=== PATIENT | female | born 1930 | race Caucasian/White ===

== ENCOUNTER 2017-05-24 13:56 | Inpatient (IN) | payer MEDICARE, MEDICAID ==
[~2017-05-24] VITALS: Ht 170.2 cm; Wt 118.2 kg
[2017-05-24] MEDS ORDERED: GABA-279 PO (14:13)
--- NOTE | 2017-05-24 16:47 | REP ---
LUMBAR SPINE, FIVE VIEWS: HISTORY: Trauma. The examination is limited secondary to the patients body habitus. There is no definite fracture or subluxation. The intervertebral discs are decreased in height consistent with disc degeneration. Osteophytes are present throughout the lumbar spine. There is scoliosis convex to the right. IMPRESSION: Limited examination demonstrating no definite fracture or subluxation. Signed by Stas Johnson MD 05/24/2017 04:51 P
--- NOTE | 2017-05-24 17:03 | REP ---
RIGHT HIP, PELVIS, THREE VIEWS: HISTORY: Trauma. There is no acute fracture or dislocation. There is narrowing of the joint space. The bony structures are osteopenic. IMPRESSION: There is no acute fracture or dislocation. Signed by Stas Johnson MD 05/24/2017 05:04 P
--- NOTE | 2017-05-24 17:12 | REP ---
RIGHT KNEE, FIVE VIEWS: HISTORY: Trauma. COMPARISON: 07/19/2007. The patient is status-post right total knee replacement. There is no acute fracture or dislocation. The bony structure is osteopenic. IMPRESSION: The patient is status-post right total knee replacement. There is anatomic alignment. Signed by Stas Johnson MD 05/25/2017 08:13 A
[2017-05-24 18:22] LABS: BASO % 0.4 % (0.0-1.0); EOS # 0.1 K/mm3 (0.0-0.50); EOS % 1.3 % (0.0-3.0); LARGE UNSTAINED CELL # 0.1 K/mm3 (0.0-0.4); LYMPH # 1.2 K/mm3 (1.5-4.5); LYMPH % 22.8 % (24.0-44.0); MEAN CORPUSCULAR HEMOGLOBIN 32.3 pg (27.0-33.0); MEAN CORPUSCULAR HGB CONC 33.1 g/dl (32.0-36.5); MEAN CORPUSCULAR VOLUME 97.7 fl (80.0-96.0); MONO # 0.4 K/mm3 (0.0-0.8); MONO % 8.5 % (0.0-5.0); NEUTROPHILS # 3.2 K/mm3 (1.8-7.7); NEUTROPHILS % 64.9 % (36.0-66.0); PLATELET COUNT, AUTOMATED 186 k/mm3 (150-450); RED CELL DISTRIBUTION WIDTH 13.4 % (11.5-14.5); WHITE BLOOD COUNT 4.9 K/mm3 (4.0-10.0)
[2017-05-24 18:55] LABS: ALBUMIN 3.2 GM/DL (3.2-5.2); ALBUMIN/GLOBULIN RATIO 0.76 (1.00-1.93); ALKALINE PHOSPHATASE 64 U/L (45-117); ALT/SGPT 31 U/L (12-78); ANION GAP 4 MEQ/L (8-16); AST/SGOT 72 U/L (15-37); BILIRUBIN,DIRECT 0.1 MG/DL (0.0-0.2); BILIRUBIN,TOTAL 0.5 MG/DL (0.2-1.0); BLOOD UREA NITROGEN 17 MG/DL (7-18); CALCIUM LEVEL 9.8 MG/DL (8.8-10.2); CARBON DIOXIDE LEVEL 32 MEQ/L (21-32); CHLORIDE LEVEL 106 MEQ/L (98-107); CREATININE FOR GFR 0.86 MG/DL (0.55-1.02); GLOMERULAR FILTRATION RATE > 60.0 (>32); GLUCOSE, FASTING 109 MG/DL (83-110); SODIUM LEVEL 142 MEQ/L (136-145); TOTAL PROTEIN 7.4 GM/DL (6.4-8.2)
[2017-05-24] MEDS ORDERED: ACETAMINOPHEN TAB 650MG DOSE (2X325MG) PO ONE (20:45)
[2017-05-24] MEDS ORDERED: ONDANSETRON 4MG/2ML VIAL (J2405) IV PRN (21:45)
[2017-05-24] MEDS ORDERED: ALBU17IN INH (21:46)
--- NOTE | 2017-05-24 22:34 | HPE ---
DATE OF ADMISSION: 05/24/2017 PRIMARY CARE PHYSICIAN: Dr. Ty Warren CHIEF COMPLAINT: Fall. HISTORY OF THE PRESENT ILLNESS: This is an 86-year-old female who lives alone, has been nonambulatory for the past 2 years, baseline transferring from her electronic chair to the bed and to the commode at home, chronic hypoxic respiratory failure, 2 liters of home oxygen as needed, chronic obstructive pulmonary disease (COPD), diabetes borderline, chronic bronchitis, right shoulder osteoarthritis, venous stasis of lower extremities, hysterectomy, bilateral knee replacement, cholecystectomy and tonsillectomy, presents to the emergency room after a fall last evening. The patient had been trying to get out of bed to go to the bathroom, had fallen and hit a stool on the bed, sustaining a right hip bruising as she fell forward without head trauma or loss of consciousness. She was in her usual state of health and denies any shortness of breath, palpitations, lightheadedness, dizziness, chest pain, pressure or tightness, fever, chills, nausea, vomiting, diarrhea, bright red blood per rectum, melena, dysuria, urgency or frequency prior to her fall. The patient has been having difficulty with ambulation for several years and has been having worsening transferring ability from bed to her chair and bed to commode for the past few weeks. The patient landed on her face and the right side and was on her right side for several hours before she pressed her Life Alert for assistance today. She was brought in for further evaluation. X-rays of the hip and knee on the right side are unremarkable for fracture or dislocation. Complete blood count (CBC), metabolic panel are unremarkable. Creatinine was normal. Liver function tests essentially normal. Urinalysis (UA) is negative. Chest x-ray has no acute infiltrate or consolidation. She is afebrile with normal vital signs. Hospitalist service was called for admission for gait instability and fall. PAST MEDICAL HISTORY: Diabetes. COPD, chronic home oxygen as needed, two liters nasal cannula. Left shoulder osteoarthritis. Venous insufficiency. PAST SURGICAL HISTORY: Cholecystectomy. Hysterectomy. Tonsillectomy. Bilateral knee replacement. ALLERGIES: PENICILLIN, PENICILLIN CROSS REACTORS. HOME MEDICATIONS: - Neurontin 100 mg twice a day - Ventolin two puffs inhaled every 4 hours as needed - Patient does not recall her medication list, usually goes to [facility] on [facility]. FAMILY HISTORY: Mother with pancreatic cancer, father with coronary artery disease. SOCIAL HISTORY: The patient lives alone. No cigarette use, alcohol or drug use. Retired caregiver and restaurant employee. The patient's healthcare proxy is Viktoriya (daughter), phone number [phone]. REVIEW OF SYSTEMS: Per history of the present illness. Twelve point system otherwise negative. PHYSICAL EXAMINATION: Temperature is 98.6, pulse 67, sinus rhythm, respiratory rate 18, blood pressure 116/74, 88% on room air, 98% on two liters nasal cannula. Generally, patient is awake, alert, oriented to person only. She is lethargic, answers questions but arousable. Appears to be very tired and exhausted, able so speak in full sentences. No respiratory distress. No cyanosis. No jugular venous distention. Pupils are round and reactive to light and accommodation. Lungs are clear to auscultation. No wheezing, rales, or rhonchi. Heart: S1, S2, sinus rhythm. Abdomen is obese, soft, nontender, nondistended. Positive bowel sounds. Extremities: 1+ pitting edema. Chronic venous stasis changes. The patient has multiple ecchymotic areas on the right buttocks with bilateral knee replacements , well healed scars. EKG: Sinus rhythm, Nonspecific ST-T changes. No acute ischemia. LABORATORY DATA: White count 4.9, hemoglobin 13, hematocrit 40, MCV 97.7, MCH 32, platelet count 186. [id number], potassium 5, chloride 106, bicarbonate 32, BUN 17, creatinine 0.86, glucose of 109, calcium 9.8, total bilirubin 0.5, direct bilirubin 0.1, AST 72, ALT 31, alkaline phosphatase 64, total protein 7.4, albumin of 3.2. MICROBIOLOGY Urinalysis - negative leukocyte esterase, nitrite, 1 WBC, negative bacteria. IMAGING STUDIES: Chest x-ray: No acute cardiopulmonary disease. Hip x-ray: No acute fracture or dislocation. Right knee x-ray: No acute fracture or dislocation. Status post right total knee replacement with anatomic alignment. Lumbar spine x-ray: Limited exam, demonstrating no definite fracture or subluxation. ASSESSMENT AND PLAN: This is an 86-year-old female with a history of borderline diabetes, chronic obstructive pulmonary disease, chronic home oxygen, two liters nasal cannula as needed for shortness of breath, chronic bronchitis, left shoulder osteoarthritis, venous stasis, bilateral knee replacements, hysterectomy, tonsillectomy, who lives alone, has been limited with her ambulation for the past 2 years, usually transfers from bed to chair and to the commode, has been having worsening gait disturbance, unable to transfer for the past few days, had fallen at home and was on the floor for several hours prior to calling Life Alert. X-rays of the hip and right knee are unremarkable. She sustained some ecchymotic areas. Denies any prodromal symptoms. Currently admitted for evaluation and treatment for fall at home from a standing position. The patient will be admitted as an inpatient for two midnights, assigned to Dr. Cadence Chen at 7:00 a.m. on 05/25/2017, [facility] for the following issues: 1. Fall from a standing position at home. The patient has been having increase in gait disturbance for the past few months. She has been in a wheelchair with bed to transfer abilities for the past 2 years, according to daughter. She lives at home. Denies any prodromal symptoms prior to the fall. X-rays are negative. Physical therapy (PT) evaluation. Deep vein thrombosis (DVT) prophylaxis and Tylenol for pain control. 2. History of chronic obstructive pulmonary disease (COPD), on chronic home oxygen. Resume nebulizer treatment as needed. Supplemental oxygen. No acute wheezing on examination. 3. Borderline diabetes. The patient's fasting glucose is 109. Check an A1c in the morning. 4. Chronic venous insufficiency, venous stasis dermatitis. Monitor for worsening symptoms. 5. DVT prophylaxis with Lovenox, renally dosed. [facility]/24/2017 at 7:00 a.m. [facility]
[2017-05-24] MEDS ORDERED: CLOPIDOGREL 75 MG TAB PO STA (23:22)
[2017-05-24] MEDS ORDERED: SIMVASTATIN 40 MG TAB PO ONE (23:30)
[2017-05-24] MEDS ORDERED: ENOXAPARIN 120 MG/0.8 ML SYR (J1650) SC SCH (23:30)
[2017-05-24] MEDS ORDERED: ASPIRIN 81 MG CHEW TABLET PO ONE (23:30)
[2017-05-24] MEDS ORDERED: NS 1,000 ML IV SCH (23:30)
[2017-05-25] VITALS (7 sets, daily range): BP systolic 116–143; BP diastolic 56–73
[2017-05-25] MEDS ORDERED: ENOXAPARIN 150 MG/ML SYR (J1650) SC SCH ×2 (02:00)
[2017-05-25 06:13] LABS: BASO % 0.4 % (0.0-1.0); EOS # 0.2 K/mm3 (0.0-0.50); EOS % 3.1 % (0.0-3.0); LARGE UNSTAINED CELL # 0.1 K/mm3 (0.0-0.4); LARGE UNSTAINED CELL % 1.7 % (0.0-4.0); LYMPH # 1.1 K/mm3 (1.5-4.5); LYMPH % 19.3 % (24.0-44.0); MEAN CORPUSCULAR HEMOGLOBIN 32.2 pg (27.0-33.0); MEAN CORPUSCULAR HGB CONC 32.8 g/dl (32.0-36.5); MEAN CORPUSCULAR VOLUME 98.4 fl (80.0-96.0); MONO # 0.4 K/mm3 (0.0-0.8); MONO % 7.5 % (0.0-5.0); NEUTROPHILS # 3.5 K/mm3 (1.8-7.7); PLATELET COUNT, AUTOMATED 188 k/mm3 (150-450); RED CELL DISTRIBUTION WIDTH 13.5 % (11.5-14.5); WHITE BLOOD COUNT 5.2 K/mm3 (4.0-10.0)
[2017-05-25 06:29] LABS: ANION GAP 5 MEQ/L (8-16); BLOOD UREA NITROGEN 18 MG/DL (7-18); CALCIUM LEVEL 9.1 MG/DL (8.8-10.2); CARBON DIOXIDE LEVEL 32 MEQ/L (21-32); CHLORIDE LEVEL 109 MEQ/L (98-107); CREATININE FOR GFR 0.74 MG/DL (0.55-1.02); GLOMERULAR FILTRATION RATE > 60.0 (>32); GLUCOSE, FASTING 125 MG/DL (83-110); POTASSIUM SERUM 4.4 MEQ/L (3.5-5.1); SODIUM LEVEL 146 MEQ/L (136-145)
--- NOTE | 2017-05-25 07:44 | ECHO ---
DATE OF PROCEDURE: 05/25/2017 REFERRING PHYSICIAN: Dr. Armstrong. Study performed in sulphate tester hours on 05/25/2017. INDICATION: Fall, elevated troponin. HEIGHT: 67 inches. WEIGHT: 215 pounds. DIMENSION: IVS: 0.9 LV: 4.0 LVPW: 0.9 LA: 4.5 Aorta: 3.1 FINDINGS: The patient is in sinus rhythm. Study is of rather limited technical quality. Left ventricle is of normal size. There is an extensive wall motion abnormality where mid and distal septum, apex, distal anterior wall, distal inferior wall, distal lateral wall are all essentially akinetic. The basal segments of the left ventricle though have hyperdynamic contractility. Overall ejection fraction I estimate around 30-35%. Right ventricle appears grossly normal. Left atrium is at least moderately enlarged. Right atrium was poorly seen but grossly appears normal. Aortic mitral tricuspid valves appear grossly normal. Pulmonic valve was not well seen. No pericardial effusion is noted. Inferior vena cava was not visualized. Aortic root is normal. Aortic arch and abdominal aorta were not seen. Doppler interrogation reveals no aortic valve disease. There is also no mitral stenosis or insufficiency. Trace tricuspid insufficiency seen. Calculated pulmonary artery pressure is within normal limits. Evaluation of diastolic function reveals delayed repolarization pattern on mitral inflow and very low tissue Doppler velocities of mitral annulus (septal and lateral E prime velocities are 6.24 and 4.5 cm/sec respectively). CONCLUSIONS: 1. Study is of fair technical quality. 2. Normal LV size with segmental wall motion abnormalities as noted above and overall estimated LVEF 30-35%. 3. No hemodynamically significant valvular disease. 4. Unable to estimate central venous pressure but probably normal or mildly elevated pulmonary artery pressure. 5. Grade 1 diastolic dysfunction. COMMENT: SBE prophylaxis is not recommended. Study favors so-called stress-induced cardiomyopathy versus ischemic event.
--- NOTE | 2017-05-25 07:49 | REP ---
Portable chest, 09:12 p.m., single AP view, the patient semi upright: Comparisons are 09/29/2012, 06/11/2011 and 07/05/2007. There is a chronic large fixed hiatal hernia. The study is under penetrated. There are no focal infiltrates. Cardiac size is normal for portable positioning. Impression: No acute cardiopulmonary findings. Chronic large fixed hiatal hernia. Bilateral shoulder osteoarthritis. Signed by Craig Bradford MD 05/25/2017 07:40 A
--- NOTE | 2017-05-25 08:22 | IPNPDOC ---
Subjective Date Seen The patient was seen on 05/25/17. Subjective Chief Complaint/HPI The patient is a 86-year-old female admitted with a reason for visit of FALL. Events since last encounter Pt states she is feeling better. She denies CP, Palp, SOB. Constitutional: Denies: Chills, Fever Pulmonary: Denies: Dyspnea Cardiovascular: Denies: Chest Pain, Palpitations Gastrointestinal: Denies: Abdominal Pain Objective Physical Examination General Exam: Positive: Alert, No Acute Distress Neck Exam: Positive: Supple, Negative: JVD Chest Exam: Positive: Clear to auscultation Heart Exam: Positive: Rate Normal, Regular Rhythm Abdomen Exam: Positive: Normal bowel sounds, Soft, Negative: Tenderness Extremity Exam: Positive: Edema (trace-1+ B/L LE edema) Assessment /Plan Problems (1) NSTEMI (non-ST elevated myocardial infarction) Problem Text: 05/25 - Cardiology consulted. I discussed with Dr Fall. Pt started on Lovenox 130 mg BID and Aspirin. On Zocor. Dr Fall questions Takotsubo. He advises decreasing the Lovenox to 120 mg BID, and advises staying on the Lovenox for 48-72 hours. He advises adding Plavix 75 mg daily and metoprolol [address] Fall discussed cath with the pt who stated she was not interested. He did bring up DNR to Pt and daughter. He would like the medicine team to continue the DNR conversation with the pt and family. ECHO: 1. Study is of fair technical quality. 2. Normal LV size with segmental wall motion abnormalities as noted above and overall estimated LVEF 30-35%. 3. No hemodynamically significant valvular disease. 4. Unable to estimate central venous pressure but probably normal or mildly elevated pulmonary artery pressure. 5. Grade 1 diastolic dysfunction. COMMENT: SBE prophylaxis is not recommended. Study favors so-called stress-induced cardiomyopathy versus ischemic event. (2) Elevated troponin Status: Acute Problem Specific Plan: Consult Specialist, Monitor Clinically, Repeat Labs Problem Text: See above. (3) Fall Status: Acute Problem Specific Plan: Monitor Clinically (4) Contusion, hip Status: Acute Problem Specific Plan: Monitor Clinically (5) Knee contusion Status: Acute Problem Specific Plan: Monitor Clinically (6) Gait disturbance Status: Acute Problem Specific Plan: Monitor Clinically (7) Hyperlipidemia Status: Chronic Problem Text: On Zocor. (8) Asthma Status: Chronic Problem Specific Plan: Monitor Clinically Problem Text: PRN Nebs. (9) Morbid obesity with BMI of 40.0-44.9, adult Plan/VTE VTE Prophylaxis Ordered?: Yes VS, I&O, 24H, Fishbone Vital Signs/I&O Vital Signs Date Time Temp Pulse Resp B/P (MAP) Pulse Ox O2 Delivery O2 Flow Rate FiO2 05/25/17 03:53 98.8 71 20 140/63 (88) 94 Room Air 05/25/17 02:25 2.0 I&O- Last 24 Hours up to 6 AM 05/25/17 06:00 Intake Total 450 ml Output Total 280 ml Balance 170 ml Laboratory Data 24H LABS Laboratory Tests 2 05/24/17 17:58: White Blood Count 4.9, Red Blood Count 4.11, Hemoglobin 13.3, Hematocrit 40.2, Mean Corpuscular Volume 97.7H, Mean Corpuscular Hemoglobin 32.3, Mean Corpuscular Hemoglobin Concent 33.1, Red Cell Distribution Width 13.4, Platelet Count 186, Neutrophils (%) (Auto) 64.9, Lymphocytes (%) (Auto) 22.8L, Monocytes (%) (Auto) 8.5H, Eosinophils (%) (Auto) 1.3, Basophils (%) (Auto) 0.4, Neutrophils # (Auto) 3.2, Lymphocytes # (Auto) 1.2L, Monocytes # (Auto) 0.4, Eosinophils # (Auto) 0.1, Basophils # (Auto) 0.0, Large Unclassified Cells % 2.0 , Large Unclassified Cells # 0.1, Anion Gap 4L, Glomerular Filtration Rate > 60.0, Calcium Level 9.8, Aspartate Amino Transf (AST/SGOT) 72H, Alanine Aminotransferase (ALT/SGPT) 31, Alkaline Phosphatase 64, Total Bilirubin 0.5, Direct Bilirubin 0.1, Total Creatine Kinase 1913H, Creatine Kinase MB 33.9H, Creatine Kinase MB Relative Index 1.77, Troponin I 7.22*H, Total Protein 7.4, Albumin 3.2, Albumin/Globulin Ratio 0.76L, Thyroid Stimulating Hormone (TSH) 1.880 05/24/17 19:51: Urine Appearance CLEAR, Urine Color YELLOW, Urine pH 5.0, Urine Specific [place] 1.020, Urine Protein NEGATIVE, Urine Glucose (UA) NEGATIVE, Urine Ketones NEGATIVE, Urine Urobilinogen 0.2, Urine Bilirubin NEGATIVE, Urine Leukocyte Esterase NEGATIVE, Urine Blood NEGATIVE, Urine Nitrite NEGATIVE, Urine WBC (Auto) 1, Urine RBC (Auto) 2, Urine Hyaline Casts (Auto) 0, Urine Bacteria (Auto) NEGATIVE, Urine Squamous Epithelial Cells 1, Urine Mucus (Auto) SMALL, Urine Sperm (Auto) 05/24/17 23:28: Total Creatine Kinase 2219H, Creatine Kinase MB 32.9H, Creatine Kinase MB Relative Index 1.48, Troponin I 6.41*H 05/25/17 05:26: White Blood Count 5.2, Red Blood Count 3.76L, Hemoglobin 12.1, Hematocrit 36.9, Mean Corpuscular Volume 98.4H, Mean Corpuscular Hemoglobin 32.2, Mean Corpuscular Hemoglobin Concent 32.8, Red Cell Distribution Width 13.5, Platelet Count 188, Neutrophils (%) (Auto) 68.0H, Lymphocytes (%) (Auto) 19.3L, Monocytes (%) (Auto) 7.5H, Eosinophils (%) (Auto) 3.1H, Basophils (%) (Auto) 0.4 , Neutrophils # (Auto) 3.5, Lymphocytes # (Auto) 1.1L, Monocytes # (Auto) 0.4, Eosinophils # (Auto) 0.2, Basophils # (Auto) 0.0, Large Unclassified Cells % 1.7 , Large Unclassified Cells # 0.1, Anion Gap 5L, Glomerular Filtration Rate > 60.0, Calcium Level 9.1, Total Creatine Kinase 1944H, Creatine Kinase MB 26.2H, Creatine Kinase MB Relative Index 1.34, Troponin I 6.13*H, Estimated Mean Plasma Glucose 123H, Hemoglobin A1c 5.9, Blood Urea Nitrogen 18, Creatinine 0.74 , Sodium Level 146H, Potassium Level 4.4, Chloride Level 109H, Carbon Dioxide Level 32 CBC/BMP Laboratory Tests 05/24/17 17:58 Red Blood Count 4.11, Mean Corpuscular Volume 97.7 H, Mean Corpuscular Hemoglobin 32.3, Mean Corpuscular Hemoglobin Concent 33.1, Red Cell Distribution Width 13.4, Neutrophils (%) (Auto) 64.9, Lymphocytes (%) (Auto) 22.8 L, Monocytes (%) (Auto) 8.5 H, Eosinophils (%) (Auto) 1.3, Basophils (%) ( Auto) 0.4, Neutrophils # (Auto) 3.2, Lymphocytes # (Auto) 1.2 L, Monocytes # ( Auto) 0.4, Eosinophils # (Auto) 0.1, Basophils # (Auto) 0.0 05/25/17 05:26 Red Blood Count 3.76 L, Mean Corpuscular Volume 98.4 H, Mean Corpuscular Hemoglobin 32.2, Mean Corpuscular Hemoglobin Concent 32.8, Red Cell Distribution Width 13.5, Neutrophils (%) (Auto) 68.0 H, Lymphocytes (%) (Auto) 19.3 L, Monocytes (%) (Auto) 7.5 H, Eosinophils (%) (Auto) 3.1 H, Basophils (%) (Auto) 0.4, Neutrophils # (Auto) 3.5, Lymphocytes # (Auto) 1.1 L, Monocytes # ( Auto) 0.4, Eosinophils # (Auto) 0.2, Basophils # (Auto) 0.0, Calcium Level 9.1, Total Creatine Kinase 1944 H Microbiology Microbiology 05/24/17 Urine Culture, Received Pending Sian Farley May 25, 2017 08:22
[2017-05-25] MEDS ORDERED: CLOPIDOGREL 75 MG TAB PO SCH (09:00)
[2017-05-25] MEDS ORDERED: ENOXAPARIN 30 MG/0.3 ML SYR (J1650) SC SCH (09:00)
[2017-05-25] MEDS: ASPIRIN 81 MG CHEW TABLET PO SCH (09:55)
[2017-05-25] MEDS: CLOPIDOGREL 75 MG TAB PO SCH (09:55)
[2017-05-25] MEDS: METOPROLOL SUCC *XL* 25MG TAB (TopROL *XL*) PO SCH ×2 (09:56→22:52)
[2017-05-25] MEDS: ACETAMINOPHEN TAB 650MG DOSE (2X325MG) PO PRN ×3 (10:01→22:52)
[2017-05-25] MEDS: ENOXAPARIN 120 MG/0.8 ML SYR (J1650) SC SCH (13:45)
--- NOTE | 2017-05-25 19:39 | REP ---
HISTORY: Pain and swelling. Multiple ultrasonographic images of the deep venous structures of the right thigh were obtained along with Doppler interrogative techniques, color flow imaging and augmentation with compression. The technologist has made notation on the worksheet that the examination was very limited due to extremity edema and the patient's inability to tolerate compressive techniques which limits the exam. No definite abnormal echogenic material was visualized in any of the deep venous structures, however, the exam is so limited it cannot be ruled out. IMPRESSION: No visualized DVT, however, exam limitations cause the inability to rule out a DVT. Signed by Derick Smith DO 05/25/2017 07:46 P
--- NOTE | 2017-05-25 20:16 | ECGEPIP ---
Stationary ECG Study [facility] - ED Test Date: 2017-05-24 Pat Name: CATHLEEN BATRES Department: Room: - Gender: F Chick Grader: KENDALL : 1930 Requested By: Kavya Du Order Number: [id number] Reading MD: Amina Schmidt Measurements Intervals [place] Rate: 62 P: 61 MA: 195 QRS: -1 QRSD: 94 T: 30 QT: 422 QTc: 431 Interpretive Statements SINUS RHYTHM WITH OCCASIONAL SUPRAVENTRICULAR PREMATURE COMPLEXES SEPTAL MYOCARDIAL INFARCTION, OF INDETERMINATE AGE POSSIBLE LATERAL MYOCARDIAL INFARCTION OF INDETERMINATE AGE NONSPECIFIC ST T WAVE CHANGES CW 09/29/12 - RATE DECREASED NEW SEPTAL INFARCT AGE INTERMINATE CLINICAL CORRELATION ADVISED Electronically Signed On 05-25-2017 20:16:01 EDT by Amina Schmidt
--- NOTE | 2017-05-25 22:51 | ECGEPIP ---
Stationary ECG Study [facility] Test Date: 2017-05-24 Pat Name: CATHLEEN BATRES Department: Room: [place] [address] Gender: F Template Cutter: rudy : 1930 Requested By: HAJA Patterson Order Number: [id number] Reading MD: Marco Montanez Measurements Intervals [place] Rate: 65 P: 54 ME: 195 QRS: 5 QRSD: 96 T: 30 QT: 336 QTc: 351 Interpretive Statements SINUS RHYTHM LOW QRS VOLTAGE IN PRECORDIAL LEADS NONSPECIFIC ST ELEVATION POSSIBLE PRIOR SEPTAL INFARCT COMPARED TO THE LAST 2 TRACINGS, NO REMARKABLE CHANGES Electronically Signed On 05-25-2017 22:50:58 EDT by Marco Montanez
[2017-05-25] MEDS: SIMVASTATIN 40 MG TAB PO SCH (22:52)
[2017-05-26] VITALS: BP 126/68
--- NOTE | 2017-05-26 01:41 | CR ---
DATE OF CONSULTATION: 05/25/2017 REFERRING PHYSICIAN: Dr. Armstrong and ALBERT Geronimo. INDICATION: Elevated troponin. BRIEF HISTORY: I was called last night and then again this morning by the attending physicians because of the patient's abnormal cardiac markers. She is an 86-year-old female who has no prior history of coronary artery disease or congestive heart failure. She presented to emergency room yesterday afternoon after she had a fall previous night. She unfortunately is a rather difficult historian and does not recall circumstances of her fall. At her baseline it appears that she is minimally mobile and is essentially using a wheelchair and a gets transferred with the help of a walker, but according to both the patient and her daughter, she has not been able to make more than few steps on her own. It appears that she was in a bed and slid out of the bed on the floor and hit her chest. The patient herself believes that she did not have any loss of consciousness. She does not recall whether she had any discomfort in her chest at this point, but as the day progressed, she was less and less mobile and there were some concern about her mental status, so she was brought to emergency room by family for evaluation. Somewhat surprisingly, she was found to have elevated cardiac enzymes with troponin over 7. The ECG did not reveal any acute abnormalities and she did not have any chest discomfort at that time. She had an echocardiogram last night that was interpreted by myself that revealed fairly extensive wall motion abnormalities involving mid and distal segment of the left ventricle with hyperdynamic contractility of basal segments of left ventricle and overall severe left ventricular systolic dysfunction. 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 When I talked to the patient this morning, she denied any chest discomfort. Her dyspnea has been stable and chronic for years. I talked to her about her condition and about some uncertainty about the diagnosis, even though in my opinion ischemic etiology is still rather strongly possible. She expressed the opinion that she would not want to pursue any heroic measures. Under no circumstance would she be willing to undergo open heart surgery and she does not want to be transferred for coronary angiogram either. PAST MEDICAL HISTORY: 1. Chronic obstructive pulmonary disease (COPD), oxygen dependent. 2. Chronic debility. She has been essentially bedridden for many months. 3. Type 2 diabetes. 4. Venous stasis of lower extremities. 5. Degenerative joint disease. 6. Morbid obesity. SURGICAL HISTORY: Positive for: 1. Cholecystectomy. 2. Hysterectomy. 3. Tonsillectomy. 4. Bilateral knee replacement. HOME MEDICATIONS: - Neurontin 100 twice a day - Ventolin puffs - gabapentin 100 twice a day - the remaining medications are not available SOCIAL HISTORY: The patient lives alone. There is no history of cigarette or drug use. She retired from caregiving jobs and restaurant employee. Her daughter, Viktoriya is her healthcare proxy and is very involved in her care. FAMILY HISTORY: Mother had pancreatic cancer and father coronary artery disease. REVIEW OF SYSTEMS: She does not recall whether she had any chest discomfort, but she believes that she could have had some degree of chest discomfort the day prior to her fall. There is no history of stroke. No recent fever, chills, nausea, vomiting, diarrhea. No abdominal pain. No genitourinary symptoms. She has chronic peripheral edema and rather extensive tenderness in both lower extremities. She has been bedridden for many months with minimal ambulation. She cannot explain as to why she cannot walk. PHYSICAL EXAMINATION: Mrs. Bailey is an elderly, morbidly obese female. She does not appear to be in any distress, looks rather comfortable. She appropriately answers most questions even though she has a poor recall of the events. Blood pressure 140/63, heart rate 71 beats per minute. She is afebrile. Saturation 94-95% on room air. Documented weight is 129 kg. Her jugular venous pulse (JVP) is not elevated, but it is difficult to estimate due to her body habitus. Lungs reveal fair air movement. I do not appreciate any wheezing, crackles or rhonchi. Heart exam reveals very muffled heart sound on account of her obesity, but I do not appreciate any gallop or rub. There is a murmur at the aortic valve area and I do not appreciate any apical murmur as such. Abdomen is protuberant, but soft. No obvious guarding. Bowel sounds are present. Extremities have 1+ edema. There is stasis dermatitis bilaterally. Peripheral pulses are palpable. Neurologically, she is alert and oriented times three. There is generalized weakness. I do not appreciate any focal signs. LABORATORY DATA: CBC is normal. Basic metabolic panel as of this morning reveals potassium 4.4, creatinine 0.7, glucose 125, hemoglobin A1c 5.9%. She has already numerous cardiac enzymes. The initial one is the peak at 7.22 with total CK 1900, CK-MB 34 and relative index 1.8, albumin is 3.2, and TSH 1.9. An echocardiogram performed at the emergency room last night as per my above report overall most consistent with Takotsubo cardiomyopathy. There was no valvular disease. An electrocardiogram reveals presence of sinus rhythm with possible septal infarct of undetermined age and also maybe minimal ST-segment elevations in lateral leads. ASSESSMENT AND PLAN: Mrs. Crowell is an 86-year-old female who presents after fall (it does not appear that she had syncope). She does have no acute ST-T abnormalities short of fairly minimal lateral abnormalities to demonstrate acute myocardial infarction (MA) and she does not have any chest discomfort (even though she recalls she may have had pain the day prior to admission). In my opinion, the more likely diagnosis is myocardial infarction, but Takotsubo cardiomyopathy is close second. It is her desire to continue medical management and not to consider coronary intervention. Considering her overall debilitated condition, I believe this is appropriate. I would recommend anticoagulation with Lovenox for at least 48-72 hours and I would continue aspirin and Plavix. She also received small dose beta tony and statin. She is otherwise hemodynamically compensated. If there are no significant arrhythmias, I believe that she can be discharged home after 3-4 days in the hospital provided there are no obvious complications. I also talked to the patient and her daughter, who is simultaneously her healthcare proxy, about her code status. Considering her wishes not to pursue aggressive medical management, I believe it would be appropriate that she is not intubated or resuscitated in the event of cardiac arrest. I discussed my assessment and plan with ALBERT Hu. KEVIN
[2017-05-26] MEDS: ENOXAPARIN 120 MG/0.8 ML SYR (J1650) SC SCH ×2 (02:12→14:12)
[2017-05-26] MEDS ORDERED: NITROGLYCERIN 0.4 MG SUBL TABLET SL PRN (02:45)
[2017-05-26 04:00] VITALS: BP 148/79
[2017-05-26 06:56] LABS: BASO % 0.2 % (0.0-1.0); EOS # 0.2 K/mm3 (0.0-0.50); EOS % 4.7 % (0.0-3.0); LARGE UNSTAINED CELL # 0.1 K/mm3 (0.0-0.4); LARGE UNSTAINED CELL % 2.3 % (0.0-4.0); LYMPH # 1.4 K/mm3 (1.5-4.5); MEAN CORPUSCULAR HEMOGLOBIN 31.4 pg (27.0-33.0); MEAN CORPUSCULAR HGB CONC 31.4 g/dl (32.0-36.5); MONO # 0.3 K/mm3 (0.0-0.8); MONO % 7.3 % (0.0-5.0); NEUTROPHILS # 2.6 K/mm3 (1.8-7.7); NEUTROPHILS % 56.5 % (36.0-66.0); PLATELET COUNT, AUTOMATED 173 k/mm3 (150-450); RED CELL DISTRIBUTION WIDTH 13.4 % (11.5-14.5); WHITE BLOOD COUNT 4.5 K/mm3 (4.0-10.0)
[2017-05-26 07:18] LABS: ALBUMIN 2.8 GM/DL (3.2-5.2); ALBUMIN/GLOBULIN RATIO 0.67 (1.00-1.93); ALKALINE PHOSPHATASE 56 U/L (45-117); ALT/SGPT 36 U/L (12-78); ANION GAP 5 MEQ/L (8-16); AST/SGOT 70 U/L (15-37); BILIRUBIN,TOTAL 0.4 MG/DL (0.2-1.0); BLOOD UREA NITROGEN 18 MG/DL (7-18); CALCIUM LEVEL 8.7 MG/DL (8.8-10.2); CARBON DIOXIDE LEVEL 31 MEQ/L (21-32); CHLORIDE LEVEL 109 MEQ/L (98-107); CREATININE FOR GFR 0.67 MG/DL (0.55-1.02); GLOMERULAR FILTRATION RATE > 60.0 (>32); GLUCOSE, FASTING 104 MG/DL (83-110); POTASSIUM SERUM 4.4 MEQ/L (3.5-5.1); SODIUM LEVEL 145 MEQ/L (136-145)
[2017-05-26 08:00] VITALS: BP 131/60
--- NOTE | 2017-05-26 08:38 | IPNPDOC ---
Subjective Date Seen The patient was seen on 05/26/17. Subjective Chief Complaint/HPI The patient is a 86-year-old female admitted with a reason for visit of FALL. Events since last encounter Pt states she is about the same. Denies any CP, SOB, Abd pain. Constitutional: Denies: Chills, Fever Pulmonary: Denies: Dyspnea Cardiovascular: Denies: Chest Pain, Palpitations Gastrointestinal: Denies: Abdominal Pain Objective Physical Examination General Exam: Positive: Alert, No Acute Distress Neck Exam: Positive: Supple, Negative: JVD Chest Exam: Positive: Clear to auscultation Heart Exam: Positive: Rate Normal, Regular Rhythm Abdomen Exam: Positive: Normal bowel sounds, Soft, Negative: Tenderness Extremity Exam: Positive: Edema (trace-1+ B/L LE edema) Assessment /Plan Problems (1) NSTEMI (non-ST elevated myocardial infarction) Problem Text: 05/26 - Seen by cardiology. Trops trending down. Dr Fall questions Takotsubo. Dr Fall discussed cath with the pt who stated she was not interested. Pt is on Lovenox [address] Fall advises staying on the Lovenox for 48-72 hours and advises her to go home on aspirin and plavix when stable for D/C. Pt is on Zocor. She is on Metoprolol 25 mg PO BID. 05/25 - Cardiology consulted. I discussed with Dr Fall. Pt started on Lovenox 130 mg BID and Aspirin. On Zocor. Dr Fall questions Takotsubo. He advises decreasing the Lovenox to 120 mg BID, and advises staying on the Lovenox for 48- 72 hours. He advises adding Plavix 75 mg daily and metoprolol [address] Fall discussed cath with the pt who stated she was not interested. He did bring up DNR to Pt and daughter. He would like the medicine team to continue the DNR conversation with the pt and family. ECHO: 1. Study is of fair technical quality. 2. Normal LV size with segmental wall motion abnormalities as noted above and overall estimated LVEF 30-35%. 3. No hemodynamically significant valvular disease. 4. Unable to estimate central venous pressure but probably normal or mildly elevated pulmonary artery pressure. 5. Grade 1 diastolic dysfunction. COMMENT: SBE prophylaxis is not recommended. Study favors so-called stress-induced cardiomyopathy versus ischemic event. (2) Elevated troponin Status: Acute Problem Specific Plan: Consult Specialist, Monitor Clinically, Repeat Labs Problem Text: See above. (3) Fall Status: Acute Problem Specific Plan: Monitor Clinically (4) Contusion, hip Status: Acute Problem Specific Plan: Monitor Clinically (5) Knee contusion Status: Acute Problem Specific Plan: Monitor Clinically (6) Gait disturbance Status: Acute Problem Specific Plan: Monitor Clinically (7) Hyperlipidemia Status: Chronic Problem Text: On Zocor. (8) Asthma Status: Chronic Problem Specific Plan: Monitor Clinically Problem Text: PRN Nebs. (9) Morbid obesity with BMI of 40.0-44.9, adult Plan/VTE VTE Prophylaxis Ordered?: Yes VS, I&O, 24H, Fishbone Vital Signs/I&O Vital Signs Date Time Temp Pulse Resp B/P (MAP) Pulse Ox O2 Delivery O2 Flow Rate FiO2 05/26/17 04:00 97.0 68 20 148/79 (102) 93 Nasal Cannula 2.0 I&O- Last 24 Hours up to 6 AM 05/26/17 06:00 Intake Total 1570 ml Output Total 500 ml Balance 1070 ml Laboratory Data 24H LABS Laboratory Tests 2 05/25/17 12:09: Total Creatine Kinase 1564H, Creatine Kinase MB 20.4H, Creatine Kinase MB Relative Index 1.30, Troponin I 5.69*H 05/25/17 18:01: Total Creatine Kinase 1309H, Creatine Kinase MB 15.8H, Creatine Kinase MB Relative Index 1.20, Troponin I 4.14#*H 05/26/17 01:40: Total Creatine Kinase 1122H, Creatine Kinase MB 12.8H, Creatine Kinase MB Relative Index 1.14, Troponin I 4.22*H 05/26/17 06:25: Total Creatine Kinase 979H, Creatine Kinase MB 10.9H, Creatine Kinase MB Relative Index 1.11, Troponin I 3.94*H, White Blood Count 4.5, Red Blood Count 3.89L, Hemoglobin 12.2, Hematocrit 38.8, Mean Corpuscular Volume 100.0H, Mean Corpuscular Hemoglobin 31.4, Mean Corpuscular Hemoglobin Concent 31.4L, Red Cell Distribution Width 13.4, Platelet Count 173, Neutrophils (%) (Auto) 56.5, Lymphocytes (%) (Auto) 29.0, Monocytes (%) (Auto) 7.3H, Eosinophils (%) (Auto) 4.7H, Basophils (%) (Auto) 0.2, Neutrophils # (Auto) 2.6, Lymphocytes # (Auto) 1.4L, Monocytes # (Auto) 0.3, Eosinophils # (Auto) 0.2, Basophils # (Auto) 0.0, Large Unclassified Cells % 2.3, Large Unclassified Cells # 0.1, Anion Gap 5L, Glomerular Filtration Rate > 60.0, Blood Urea Nitrogen 18, Creatinine 0.67, Sodium Level 145, Potassium Level 4.4, Chloride Level 109H, Carbon Dioxide Level 31, Calcium Level 8.7L, Aspartate Amino Transf (AST/SGOT) 70H, Alanine Aminotransferase (ALT/SGPT) 36, Alkaline Phosphatase 56, Total Bilirubin 0.4, Total Protein 7.0, Albumin 2.8L, Albumin/Globulin Ratio 0.67L CBC/BMP Laboratory Tests 05/26/17 06:25 Red Blood Count 3.89 L, Mean Corpuscular Volume 100.0 H, Mean Corpuscular Hemoglobin 31.4, Mean Corpuscular Hemoglobin Concent 31.4 L, Red Cell Distribution Width 13.4, Neutrophils (%) (Auto) 56.5, Lymphocytes (%) (Auto) 29.0, Monocytes (%) (Auto) 7.3 H, Eosinophils (%) (Auto) 4.7 H, Basophils (%) ( Auto) 0.2, Neutrophils # (Auto) 2.6, Lymphocytes # (Auto) 1.4 L, Monocytes # ( Auto) 0.3, Eosinophils # (Auto) 0.2, Basophils # (Auto) 0.0, Calcium Level 8.7 L , Aspartate Amino Transf (AST/SGOT) 70 H, Alanine Aminotransferase (ALT/SGPT) 36 , Total Creatine Kinase 979 H, Alkaline Phosphatase 56, Total Bilirubin 0.4, Total Protein 7.0, Albumin 2.8 L Microbiology Microbiology 05/24/17 Urine Culture, Received Pending Sina Farley May 26, 2017 08:38
[2017-05-26] MEDS: ASPIRIN 81 MG CHEW TABLET PO SCH (08:52)
[2017-05-26] MEDS: METOPROLOL SUCC *XL* 25MG TAB (TopROL *XL*) PO SCH ×2 (08:52→22:28)
[2017-05-26] MEDS: CLOPIDOGREL 75 MG TAB PO SCH (08:52)
[2017-05-26] MEDS: ACETAMINOPHEN TAB 650MG DOSE (2X325MG) PO PRN ×3 (08:52→23:58)
[2017-05-26 11:49] VITALS: BP 124/59
[2017-05-26 16:00] VITALS: BP 156/74
[2017-05-26 20:00] VITALS: BP 152/81
[2017-05-26] MEDS: SIMVASTATIN 40 MG TAB PO SCH (22:28)
[2017-05-27] VITALS (7 sets, daily range): BP systolic 135–164; BP diastolic 66–96
[2017-05-27] MEDS: ENOXAPARIN 120 MG/0.8 ML SYR (J1650) SC SCH ×2 (01:59→13:10)
[2017-05-27 06:09] LABS: BASO % 0.4 % (0.0-1.0); EOS # 0.2 K/mm3 (0.0-0.50); EOS % 4.2 % (0.0-3.0); LARGE UNSTAINED CELL # 0.1 K/mm3 (0.0-0.4); LARGE UNSTAINED CELL % 1.3 % (0.0-4.0); LYMPH # 1.3 K/mm3 (1.5-4.5); LYMPH % 23.6 % (24.0-44.0); MEAN CORPUSCULAR HEMOGLOBIN 31.6 pg (27.0-33.0); MEAN CORPUSCULAR VOLUME 98.5 fl (80.0-96.0); MONO # 0.3 K/mm3 (0.0-0.8); MONO % 6.4 % (0.0-5.0); NEUTROPHILS # 3.2 K/mm3 (1.8-7.7); PLATELET COUNT, AUTOMATED 183 k/mm3 (150-450); RED CELL DISTRIBUTION WIDTH 13.5 % (11.5-14.5)
[2017-05-27 06:30] LABS: ALBUMIN/GLOBULIN RATIO 0.73 (1.00-1.93); ALKALINE PHOSPHATASE 64 U/L (45-117); ALT/SGPT 44 U/L (12-78); ANION GAP 7 MEQ/L (8-16); AST/SGOT 63 U/L (15-37); BILIRUBIN,TOTAL 0.5 MG/DL (0.2-1.0); BLOOD UREA NITROGEN 16 MG/DL (7-18); CALCIUM LEVEL 8.9 MG/DL (8.8-10.2); CARBON DIOXIDE LEVEL 28 MEQ/L (21-32); CHLORIDE LEVEL 109 MEQ/L (98-107); CREATININE FOR GFR 0.62 MG/DL (0.55-1.02); GLOMERULAR FILTRATION RATE > 60.0 (>32); GLUCOSE, FASTING 108 MG/DL (83-110); POTASSIUM SERUM 4.4 MEQ/L (3.5-5.1); SODIUM LEVEL 144 MEQ/L (136-145); TOTAL PROTEIN 7.1 GM/DL (6.4-8.2)
[2017-05-27] MEDS: CLOPIDOGREL 75 MG TAB PO SCH (08:43)
[2017-05-27] MEDS: METOPROLOL SUCC *XL* 25MG TAB (TopROL *XL*) PO SCH ×2 (08:43→20:48)
[2017-05-27] MEDS: ASPIRIN 81 MG CHEW TABLET PO SCH (08:43)
[2017-05-27] MEDS: ACETAMINOPHEN TAB 650MG DOSE (2X325MG) PO PRN (08:45)
[2017-05-27] MEDS ORDERED: SLF 3 ML SYR IV PRN (10:45)
--- NOTE | 2017-05-27 12:27 | IPNPDOC ---
Subjective Date Seen The patient was seen on 05/27/17. Subjective Chief Complaint/HPI The patient is a 86-year-old female admitted with a reason for visit of FALL. Events since last encounter Denies c/o. Constitutional: Denies: Chills, Fever, Night Sweats Pulmonary: Denies: Dyspnea, Cough Cardiovascular: Denies: Chest Pain, Palpitations, Orthopnea, Paroxysmal Noc. Dyspnea, Lt Headedness Genitourinary: Denies: Dysuria, Frequency, Incontinence, Retention Objective Physical Examination General Exam: Positive: Alert, No Acute Distress Neck Exam: Positive: Supple, Negative: JVD Chest Exam: Positive: Clear to auscultation Heart Exam: Positive: Rate Normal, Regular Rhythm Telemetry: Positive: No significant arrhythmia Abdomen Exam: Positive: Normal bowel sounds, Soft, Negative: Tenderness Extremity Exam: Positive: Edema (trace-1+ B/L LE edema) Assessment /Plan Problems (1) NSTEMI (non-ST elevated myocardial infarction) Problem Text: 05/27/17: see cardiology recommendations 05/26 - Seen by cardiology. Trops trending down. Dr Fall questions Takotsubo. Dr Fall discussed cath with the pt who stated she was not interested. Pt is on Lovenox [address] Fall advises staying on the Lovenox for 48-72 hours and advises her to go home on aspirin and plavix when stable for D/C. Pt is on Zocor. She is on Metoprolol 25 mg PO BID. 05/25 - Cardiology consulted. I discussed with Dr Fall. Pt started on Lovenox 130 mg BID and Aspirin. On Zocor. Dr Fall questions Takotsubo. He advises decreasing the Lovenox to 120 mg BID, and advises staying on the Lovenox for 48- 72 hours. He advises adding Plavix 75 mg daily and metoprolol [address] Fall discussed cath with the pt who stated she was not interested. He did bring up DNR to Pt and daughter. He would like the medicine team to continue the DNR conversation with the pt and family. ECHO: 1. Study is of fair technical quality. 2. Normal LV size with segmental wall motion abnormalities as noted above and overall estimated LVEF 30-35%. 3. No hemodynamically significant valvular disease. 4. Unable to estimate central venous pressure but probably normal or mildly elevated pulmonary artery pressure. 5. Grade 1 diastolic dysfunction. COMMENT: SBE prophylaxis is not recommended. Study favors so-called stress-induced cardiomyopathy versus ischemic event. (2) Elevated troponin Status: Acute Problem Specific Plan: Consult Specialist, Monitor Clinically, Repeat Labs Problem Text: See above. (3) Fall Status: Acute Problem Specific Plan: Monitor Clinically (4) Contusion, hip Status: Acute Problem Specific Plan: Monitor Clinically (5) Knee contusion Status: Acute Problem Specific Plan: Monitor Clinically (6) Gait disturbance Status: Acute Problem Specific Plan: Monitor Clinically (7) Hyperlipidemia Status: Chronic Problem Text: On Zocor. (8) Asthma Status: Chronic Problem Specific Plan: Monitor Clinically Problem Text: PRN Nebs. (9) Morbid obesity with BMI of 40.0-44.9, adult Plan/VTE VTE Prophylaxis Ordered?: Yes VS, I&O, 24H, Fishbone Vital Signs/I&O Vital Signs Date Time Temp Pulse Resp B/P (MAP) Pulse Ox O2 Delivery O2 Flow Rate FiO2 05/27/17 08:43 66 164/73 05/27/17 08:00 Room Air 05/27/17 07:35 98.2 20 93 05/27/17 00:00 2.0 I&O- Last 24 Hours up to 6 AM 05/27/17 06:00 Intake Total 840 ml Output Total 675 ml Balance 165 ml Laboratory Data 24H LABS Laboratory Tests 2 05/27/17 05:52: White Blood Count 5.0, Red Blood Count 3.92L, Hemoglobin 12.4, Hematocrit 38.6, Mean Corpuscular Volume 98.5H, Mean Corpuscular Hemoglobin 31.6, Mean Corpuscular Hemoglobin Concent 32.0, Red Cell Distribution Width 13.5, Platelet Count 183, Neutrophils (%) (Auto) 64.0, Lymphocytes (%) (Auto) 23.6L, Monocytes (%) (Auto) 6.4H, Eosinophils (%) (Auto) 4.2H, Basophils (%) (Auto) 0.4, Neutrophils # (Auto) 3.2, Lymphocytes # (Auto) 1.3L, Monocytes # (Auto) 0.3, Eosinophils # (Auto) 0.2, Basophils # (Auto) 0.0, Large Unclassified Cells % 1.3 , Large Unclassified Cells # 0.1, Anion Gap 7L, Glomerular Filtration Rate > 60.0, Blood Urea Nitrogen 16, Creatinine 0.62, Sodium Level 144, Potassium Level 4.4, Chloride Level 109H, Carbon Dioxide Level 28, Calcium Level 8.9, Aspartate Amino Transf (AST/SGOT) 63H, Alanine Aminotransferase (ALT/SGPT) 44, Alkaline Phosphatase 64, Total Bilirubin 0.5, Total Protein 7.1, Albumin 3.0L, Albumin/Globulin Ratio 0.73L CBC/BMP Laboratory Tests 05/27/17 05:52 Red Blood Count 3.92 L, Mean Corpuscular Volume 98.5 H, Mean Corpuscular Hemoglobin 31.6, Mean Corpuscular Hemoglobin Concent 32.0, Red Cell Distribution Width 13.5, Neutrophils (%) (Auto) 64.0, Lymphocytes (%) (Auto) 23.6 L, Monocytes (%) (Auto) 6.4 H, Eosinophils (%) (Auto) 4.2 H, Basophils (%) (Auto) 0.4, Neutrophils # (Auto) 3.2, Lymphocytes # (Auto) 1.3 L, Monocytes # ( Auto) 0.3, Eosinophils # (Auto) 0.2, Basophils # (Auto) 0.0, Calcium Level 8.9, Aspartate Amino Transf (AST/SGOT) 63 H, Alanine Aminotransferase (ALT/SGPT) 44, Alkaline Phosphatase 64, Total Bilirubin 0.5, Total Protein 7.1, Albumin 3.0 L Microbiology Microbiology 05/24/17 Urine Culture - Final, Complete Roseann Valle [employer]PER[employer] May 27, 2017 12:27
[2017-05-27] MEDS: SLF 3 ML SYR IV SCH ×2 (13:10→20:49)
[2017-05-27] MEDS: SIMVASTATIN 40 MG TAB PO SCH (20:48)
[2017-05-28] MEDS: ENOXAPARIN 120 MG/0.8 ML SYR (J1650) SC SCH ×2 (04:07→13:28)
[2017-05-28] MEDS: SLF 3 ML SYR IV SCH ×3 (04:07→21:35)
[2017-05-28 04:20] VITALS: BP 160/80
[2017-05-28 05:38] LABS: MEAN CORPUSCULAR HEMOGLOBIN 32.1 pg (27.0-33.0); MEAN CORPUSCULAR HGB CONC 32.4 g/dl (32.0-36.5); RED CELL DISTRIBUTION WIDTH 13.5 % (11.5-14.5); WHITE BLOOD COUNT 4.6 K/mm3 (4.0-10.0)
[2017-05-28 07:25] VITALS: BP 166/80
[2017-05-28] MEDS: ASPIRIN 81 MG CHEW TABLET PO SCH (09:43)
[2017-05-28] MEDS: METOPROLOL SUCC *XL* 25MG TAB (TopROL *XL*) PO SCH ×2 (09:43→21:34)
[2017-05-28] MEDS: CLOPIDOGREL 75 MG TAB PO SCH (09:43)
[2017-05-28] MEDS: IPRATROPIUM 0.5MG/ALBUTEROL 2.5MG INH SOL UD 3ML (DUONEB)(J7620) NEB PRN (09:52)
[2017-05-28] MEDS: ACETAMINOPHEN TAB 650MG DOSE (2X325MG) PO PRN ×2 (10:11→18:34)
[2017-05-28 12:00] VITALS: BP 164/82
--- NOTE | 2017-05-28 12:57 | IPN ---
DATE OF SERVICE: 05/28/2017 Mrs. Sheila Bailey was seen early this morning, she was supine in bed. She came to the hospital after a fall on 05/24/2017, and she was found to have abnormal troponin. Echocardiogram revealed findings that may be related to takotsubo syndrome. Patient now is being managed for a coronary syndrome/non-ST elevation myocardial infarction. ON PHYSICAL EXAMINATION: Patient is alert and awake, appeared to be agitated this morning. Her vital signs this morning reveal a blood pressure of 166/80 with a pulse of 64, respirations 20, and maximum temperature is 98.4 degrees Fahrenheit, with an oxygen saturation of 95% on 2 liters nasal cannula. Examination of the head, ears, eyes, nose, and throat: Atraumatic. Neck is supple, no jugular venous distention (JVD). Lungs did not reveal any wheezing or crackles. The heart examination revealed normal S1 and S2 without gallops. The point of maximum impulse (PMI) is not displaced. There is no rub. Abdomen is unremarkable. Extremities: Positive for pedal edema. Neurological examination is negative for focal deficit but was limited. LABS: CBC revealed WBC of 4.6, hemoglobin 12.5, hematocrit 38.7, and platelets 166,000. BMP revealed a sodium of 144, potassium 4.4, chloride 109, CO2 28, BUN 16, creatinine 0.62, GFR more than 60, fasting glucose 108, calcium 8.9. Liver enzymes revealed a total bilirubin of 0.5, AST 63, ALT 44, alkaline phosphatase 64, total protein 7.1, albumin 3.0. Serum troponin initially was up to 7.22 on 05/24/2017, and today, 05/28/2017, it is 0.73. Electrocardiogram showed telemetry revealed normal sinus rhythm and isolated premature ventricular contractions (PVCs). IMPRESSION: 1. Status post acute myocardial infarction ([place]). Possible takotsubo cardiomyopathy. Patient currently is on aspirin, Plavix, a statin, as well as a beta tony, and will continue the same. She is also on Lovenox. Her left ventricular ejection fraction (LVEF) is moderately depressed, and she will be started on an angiotensin-converting enzyme (BUSTER). I do not see any history of allergies. Will need to monitor her BUN, creatinine, and serum potassium. 2. Cardiomyopathy, ischemic in nature, and she appears to be compensated. I will continue the beta tony and add an BUSTER inhibitor, as mentioned above. 3. Hyperlipidemia. This will be reassessed while in the hospital. 4. Possible hypertension. She will need to be monitored. 5. Status post fall with history of gait disturbance. 6. History of asthma. 7. Morbid obesity. It was a pleasure to participate in the care of Mrs. Sheila Bailey for her underlying cardiac condition. I will continue to monitor her along with you as needed. Please do not hesitate to call if any questions. KEVIN
[2017-05-28] MEDS: LISINOPRIL 5 MG TAB PO SCH (13:28)
[2017-05-28 16:00] VITALS: BP 156/80
[2017-05-28 20:00] VITALS: BP 109/56
--- NOTE | 2017-05-28 21:32 | IPNPDOC ---
Subjective Date Seen The patient was seen on 05/28/17. Subjective Chief Complaint/HPI The patient is a 86-year-old female admitted with a reason for visit of FALL. Events since last encounter Patient reporting more wheezing and shortness of breath today. Denies fevers, chills, sweats. Has been unable to participate in physical therapy, as they have been concerned about her troponin levels. She is being medically managed for NSTEMI, and is not proceeding for cardiac catheterization. Constitutional: Denies: Chills, Fever Pulmonary: Reports: Other Symptoms (wheezing, mild shortness of breath), Denies: Dyspnea, Cough Cardiovascular: Denies: Chest Pain, Palpitations, Orthopnea Gastrointestinal: Denies: Vomiting Other systems 10 point review systems otherwise negative Objective Physical Examination General Exam: Positive: Alert, No Acute Distress Neck Exam: Positive: Supple, Negative: JVD Chest Exam: Positive: Clear to auscultation Heart Exam: Positive: Rate Normal, Regular Rhythm Telemetry: Positive: No significant arrhythmia Abdomen Exam: Positive: Normal bowel sounds, Soft, Negative: Tenderness Extremity Exam: Positive: Edema (trace-1+ B/L LE edema) Psych Exam: Negative: Oriented x 3 (alert and oriented to name, hospital, [place]) Assessment /Plan Problems (1) NSTEMI (non-ST elevated myocardial infarction) Problem Text: 05/28: Currently medical management of N STEMI with beta tony, Arnel, aspirin, Plavix, and statin. Cardiology consulted. Echo possibly consistent with Takotsubo. Currently compensated although patient is somewhat wheezy today. Chest x-ray showed no pulmonary edema. 05/27/17: see cardiology recommendations 05/26 - Seen by cardiology. Trops trending down. Dr Fall questions Takotsubo. Dr Fall discussed cath with the pt who stated she was not interested. Pt is on Lovenox [address] Fall advises staying on the Lovenox for 48-72 hours and advises her to go home on aspirin and plavix when stable for D/C. Pt is on Zocor. She is on Metoprolol 25 mg PO BID. 05/25 - Cardiology consulted. I discussed with Dr Fall. Pt started on Lovenox 130 mg BID and Aspirin. On Zocor. Dr Fall questions Takotsubo. He advises decreasing the Lovenox to 120 mg BID, and advises staying on the Lovenox for 48- 72 hours. He advises adding Plavix 75 mg daily and metoprolol [address] Fall discussed cath with the pt who stated she was not interested. He did bring up DNR to Pt and daughter. He would like the medicine team to continue the DNR conversation with the pt and family. ECHO: 1. Study is of fair technical quality. 2. Normal LV size with segmental wall motion abnormalities as noted above and overall estimated LVEF 30-35%. 3. No hemodynamically significant valvular disease. 4. Unable to estimate central venous pressure but probably normal or mildly elevated pulmonary artery pressure. 5. Grade 1 diastolic dysfunction. COMMENT: SBE prophylaxis is not recommended. Study favors so-called stress-induced cardiomyopathy versus ischemic event. (2) Elevated troponin Status: Acute Problem Specific Plan: Consult Specialist, Monitor Clinically, Repeat Labs Problem Text: Resolving. Patient may need rehabilitation after hospitalization. (3) Fall Status: Acute Problem Specific Plan: Monitor Clinically (4) Contusion, hip Status: Acute Problem Specific Plan: Monitor Clinically (5) Knee contusion Status: Acute Problem Specific Plan: Monitor Clinically (6) Gait disturbance Status: Acute Problem Specific Plan: Monitor Clinically (7) Hyperlipidemia Status: Chronic Problem Text: On Zocor. (8) Asthma Status: Chronic Problem Specific Plan: Monitor Clinically Problem Text: PRN Nebs. (9) Morbid obesity with BMI of 40.0-44.9, adult Plan/VTE VTE Prophylaxis Ordered?: Yes Disposition Possibly to rehabilitation on Tuesday pending respiratory status VS, I&O, 24H, [facility] Vital Signs/I&O Vital Signs Date Time Temp Pulse Resp B/P (MAP) Pulse Ox O2 Delivery O2 Flow Rate FiO2 05/28/17 20:00 97.9 65 20 109/56 (73) 93 Nasal Cannula 2.0 I&O- Last 24 Hours up to 6 AM 05/28/17 06:00 Intake Total 650 ml Output Total 700 ml Balance -50 ml Laboratory Data 24H LABS Laboratory Tests 2 05/28/17 04:39: Troponin I 0.73#H CBC/BMP Laboratory Tests 05/28/17 04:39 Red Blood Count 3.91 L, Mean Corpuscular Volume 99.0 H, Mean Corpuscular Hemoglobin 32.1, Mean Corpuscular Hemoglobin Concent 32.4, Red Cell Distribution Width 13.5 Microbiology Microbiology 05/27/17 Urine Culture - Final, Complete 05/24/17 Urine Culture - Final, Complete VALENTINE MERCHANT MD May 28, 2017 21:32
[2017-05-28] MEDS: SIMVASTATIN 40 MG TAB PO SCH (21:34)
[2017-05-29 00:12] VITALS: BP 149/65
[2017-05-29] MEDS: ENOXAPARIN 120 MG/0.8 ML SYR (J1650) SC SCH ×2 (02:59→13:30)
[2017-05-29 04:00] VITALS: BP 132/66
[2017-05-29] MEDS: SLF 3 ML SYR IV SCH ×3 (04:05→20:22)
[2017-05-29 07:35] VITALS: BP 129/60
[2017-05-29] MEDS: CLOPIDOGREL 75 MG TAB PO SCH (08:50)
[2017-05-29] MEDS: METOPROLOL SUCC *XL* 25MG TAB (TopROL *XL*) PO SCH ×2 (08:50→20:18)
[2017-05-29] MEDS: ASPIRIN 81 MG CHEW TABLET PO SCH (08:50)
[2017-05-29] MEDS: LISINOPRIL 5 MG TAB PO SCH (08:50)
[2017-05-29] MEDS: ACETAMINOPHEN TAB 650MG DOSE (2X325MG) PO PRN (08:51)
--- NOTE | 2017-05-29 11:42 | IPNPDOC ---
Subjective Date Seen The patient was seen on 05/29/17. Subjective Chief Complaint/HPI The patient is a 86-year-old female admitted with a reason for visit of FALL. Objective Physical Examination General Exam: Positive: Alert, No Acute Distress Neck Exam: Positive: Supple, Negative: JVD Chest Exam: Positive: Clear to auscultation Heart Exam: Positive: Rate Normal, Regular Rhythm Telemetry: Positive: No significant arrhythmia Abdomen Exam: Positive: Normal bowel sounds, Soft, Negative: Tenderness Extremity Exam: Positive: Edema (trace-1+ B/L LE edema) Psych Exam: Negative: Oriented x 3 (alert and oriented to name, hospital, [place]) Assessment /Plan Problems (1) Acute diastolic congestive heart failure, NYHA class 4 Status: Acute Problem Text: 05/29: Poss secondary to recent [place]. LVEF 30-35%. Pt on low dose ARNEL and low dose BB per cardiology. Rales on exam today and prev CXR did not show pulmonary edema, so may be more acute after [place]. Cont to have wheezing and SOB at rest, likely secondary to pulmonary edema present now. - IV lasix 40 mg once - lasix 20 mg IV daily and spironolactone 25 mg PO daily; target 1L daily loss - check mag after diuresis. (2) NSTEMI (non-ST elevated myocardial infarction) Problem Text: 05/29: Currently medical management of N STEMI with beta tony, Arnel, aspirin, Plavix, and statin. Cardiology consulted. Echo possibly consistent with Takotsubo. Currently compensated although patient cont to be wheezy today. Wheezing and rales on exam. - cont med management of NSTEMI with acute CHF 05/28: Currently medical management of N STEMI with beta tony, Arnel, aspirin, Plavix, and statin. Cardiology consulted. Echo possibly consistent with Takotsubo. Currently compensated although patient is somewhat wheezy today. Chest x-ray showed no pulmonary edema. 05/27/17: see cardiology recommendations 05/26 - Seen by cardiology. Trops trending down. Dr Fall questions Takotsubo. Dr Fall discussed cath with the pt who stated she was not interested. Pt is on Lovenox [address] Fall advises staying on the Lovenox for 48-72 hours and advises her to go home on aspirin and plavix when stable for D/C. Pt is on Zocor. She is on Metoprolol 25 mg PO BID. 05/25 - Cardiology consulted. I discussed with Dr Fall. Pt started on Lovenox 130 mg BID and Aspirin. On Zocor. Dr Fall questions Takotsubo. He advises decreasing the Lovenox to 120 mg BID, and advises staying on the Lovenox for 48- 72 hours. He advises adding Plavix 75 mg daily and metoprolol [address] Fall discussed cath with the pt who stated she was not interested. He did bring up DNR to Pt and daughter. He would like the medicine team to continue the DNR conversation with the pt and family. ECHO: 1. Study is of fair technical quality. 2. Normal LV size with segmental wall motion abnormalities as noted above and overall estimated LVEF 30-35%. 3. No hemodynamically significant valvular disease. 4. Unable to estimate central venous pressure but probably normal or mildly elevated pulmonary artery pressure. 5. Grade 1 diastolic dysfunction. COMMENT: SBE prophylaxis is not recommended. Study favors so-called stress-induced cardiomyopathy versus ischemic event. (3) Elevated troponin Status: Acute Problem Specific Plan: Consult Specialist, Monitor Clinically, Repeat Labs Problem Text: Resolving. Plan for rehabilitation after hospitalization. Pt not able to participate at all in PT yet. Refused yesterday. (4) Fall Status: Acute Problem Specific Plan: Monitor Clinically (5) Contusion, hip Status: Acute Problem Specific Plan: Monitor Clinically (6) Knee contusion Status: Acute Problem Specific Plan: Monitor Clinically (7) Gait disturbance Status: Acute Problem Specific Plan: Monitor Clinically (8) Hyperlipidemia Status: Chronic Problem Text: On Zocor. (9) Asthma Status: Chronic Problem Specific Plan: Monitor Clinically Problem Text: PRN Nebs. (10) Morbid obesity with BMI of 40.0-44.9, adult Plan/VTE VTE Prophylaxis Ordered?: Yes Disposition Transfer to floor. Plan for rehab. Pt not currently active in any type of PT. VS, I&O, 24H, Fishbone Vital Signs/I&O Vital Signs Date Time Temp Pulse Resp B/P (MAP) Pulse Ox O2 Delivery O2 Flow Rate FiO2 05/29/17 08:50 129/60 05/29/17 08:50 65 05/29/17 08:00 Nasal Cannula 2.0 05/29/17 07:35 98.0 22 97 I&O- Last 24 Hours up to 6 AM 05/29/17 06:00 Intake Total 600 ml Output Total 450 ml Balance 150 ml Laboratory Data Microbiology Microbiology 05/27/17 Urine Culture - Final, Complete 05/24/17 Urine Culture - Final, Complete VALENTINE MERCHANT MD May 29, 2017 11:42
[2017-05-29] MEDS: SPIRONOLACTONE 25 MG TAB PO SCH (11:48)
[2017-05-29] MEDS ORDERED: FUROSEMIDE 20 MG/2 ML VIAL (J1940) IV ONE (12:00)
[2017-05-29 12:30] VITALS: BP 120/60
[2017-05-29 17:15] VITALS: BP 133/60
[2017-05-29] MEDS: IPRATROPIUM 0.5MG/ALBUTEROL 2.5MG INH SOL UD 3ML (DUONEB)(J7620) NEB PRN (18:17)
[2017-05-29] MEDS: SIMVASTATIN 40 MG TAB PO SCH (20:18)
[2017-05-29 22:00] VITALS: BP 110/58
--- NOTE | 2017-05-29 23:23 | IPN ---
DATE OF SERVICE: 05/29/2017 Mrs. Sheila Bailey was seen this morning, she was supine in bed in no acute distress at rest. She was seen yesterday and the blood pressure was elevated and she was started on a small dose of lisnopril. She does have underlying left ventricular systolic dysfunction. There is no report of chest pain, shortness of breath and there was no orthopnea or paroxysmal nocturnal dyspnea (PND). There is no report of palpitations. There is no report of bleeding. There is no nausea, vomiting or diarrhea, melena or hematemesis. PHYSICAL EXAMINATION: Patient is alert, sleepy, in no acute distress at rest. Her vital signs this morning when I saw her reveal a blood pressure of 129/60 with a pulse of 65, respirations 18, and her maximum temperature was 98 degrees Fahrenheit. Her oxygen saturation was 97% on 2 liters nasal cannula. Examination of the head: Atraumatic. Neck is supple, no jugular venous distention (JVD) and I could not appreciate any carotid bruits. The lungs did not reveal any wheezing or crackles. The heart examination revealed normal S1 and S2 without gallops. I could not appreciate any murmur. Abdomen is soft and nontender. Extremities: Positive for edema. Neurological examination was not done. IMPRESSION: 1. Mrs. Sheila Bailey seems to be stable from a cardiac point of view after her recent myocardial infarction ([place]) and possible cardiomyopathy. She is now currently on aspirin and Plavix, as well as Lovenox. She is also on a beta tony and angiotensin-converting enzyme (BUSTER) inhibitor. Will continue current management and we need to monitor her BUN, creatinine and serum potassium. Tomorrow, I will repeat her complete metabolic profile (CMP) and check her lipid profile. She will be seen by Dr. Fall. 2. Hypertension, under control. 3. Hyperlipidemia and this will be assessed. 4. Status post fall. 5. Obesity, morbid. MTDD
[2017-05-30] MEDS: ACETAMINOPHEN TAB 650MG DOSE (2X325MG) PO PRN ×2 (01:21→20:44)
[2017-05-30] MEDS: ENOXAPARIN 120 MG/0.8 ML SYR (J1650) SC SCH ×2 (01:22→14:04)
[2017-05-30 06:00] VITALS: BP 130/61
[2017-05-30] MEDS: SLF 3 ML SYR IV SCH ×3 (06:00→21:16)
[2017-05-30 06:54] LABS: ALBUMIN 2.7 GM/DL (3.2-5.2); ALBUMIN/GLOBULIN RATIO 0.66 (1.00-1.93); ALKALINE PHOSPHATASE 64 U/L (45-117); ALT/SGPT 33 U/L (12-78); ANION GAP 6 MEQ/L (8-16); AST/SGOT 29 U/L (15-37); BILIRUBIN,TOTAL 0.5 MG/DL (0.2-1.0); BLOOD UREA NITROGEN 21 MG/DL (7-18); CALCIUM LEVEL 9.3 MG/DL (8.8-10.2); CARBON DIOXIDE LEVEL 31 MEQ/L (21-32); CHLORIDE LEVEL 106 MEQ/L (98-107); CHOLESTEROL LEVEL 124 MG/DL (<200); CREATININE FOR GFR 0.71 MG/DL (0.55-1.02); GLOMERULAR FILTRATION RATE > 60.0 (>32); GLUCOSE, FASTING 99 MG/DL (83-110); POTASSIUM SERUM 4.2 MEQ/L (3.5-5.1); SODIUM LEVEL 143 MEQ/L (136-145); TOTAL PROTEIN 6.8 GM/DL (6.4-8.2); TRIGLYCERIDES LEVEL 91 MG/DL (<150)
--- NOTE | 2017-05-30 07:43 | IPNPDOC ---
Subjective Date Seen The patient was seen on 05/30/17. Subjective Chief Complaint/HPI The patient is a 86-year-old female admitted with a reason for visit of FALL. Events since last encounter Denies c/o. Started diuresis yesterday. net negative 300 ml. C/o fatigue. Poor progression with PT. Per PFS note, daughter would like to consider LTC due to poor self care at at home. Constitutional: Denies: Chills, Fever, Night Sweats Skin: Denies: Rash, Lesions, Breakdown Pulmonary: Reports: Dyspnea, Denies: Cough Cardiovascular: Denies: Chest Pain, Palpitations, Orthopnea, Paroxysmal Noc. Dyspnea, Lt Headedness Gastrointestinal: Denies: Nausea, Vomiting, Abdominal Pain, Diarrhea, Constipation Genitourinary: Denies: Dysuria, Frequency, Incontinence, Retention Objective Physical Examination General Exam: Positive: Alert, No Acute Distress Neck Exam: Positive: Supple, Negative: JVD Chest Exam: Positive: Rales (fine bibasilar rales) Heart Exam: Positive: Rate Normal, Regular Rhythm Telemetry: Positive: No significant arrhythmia Abdomen Exam: Positive: Normal bowel sounds, Soft, Negative: Tenderness Extremity Exam: Positive: Edema (trace-1+ B/L LE edema) Psych Exam: Negative: Oriented x 3 (alert and oriented to name, hospital, [place]) Assessment /Plan Problems (1) Acute diastolic congestive heart failure, NYHA class 4 Status: Acute Problem Text: 05/30/17: -300 ml since yesterday. monitor I/O. Mag level ordered. electrolytes are stable. 05/29: Poss secondary to recent [place]. LVEF 30-35%. Pt on low dose ARNEL and low dose BB per cardiology. Rales on exam today and prev CXR did not show pulmonary edema , so may be more acute after [place]. Cont to have wheezing and SOB at rest, likely secondary to pulmonary edema present now. - IV lasix 40 mg once - lasix 20 mg IV daily and spironolactone 25 mg PO daily; target 1L daily loss - check mag after diuresis. (2) NSTEMI (non-ST elevated myocardial infarction) Problem Text: 05/30/17: cardiology monitoring. monitor I/O and electrolytes with diuresis. 05/29: Currently medical management of N STEMI with beta tony, Arnel, aspirin, Plavix, and statin. Cardiology consulted. Echo possibly consistent with Takotsubo. Currently compensated although patient cont to be wheezy today. Wheezing and rales on exam. - cont med management of NSTEMI with acute CHF 05/28: Currently medical management of N STEMI with beta tony, Arnel, aspirin, Plavix, and statin. Cardiology consulted. Echo possibly consistent with Takotsubo. Currently compensated although patient is somewhat wheezy today. Chest x-ray showed no pulmonary edema. 05/27/17: see cardiology recommendations 05/26 - Seen by cardiology. Trops trending down. Dr Fall questions Takotsubo. Dr Fall discussed cath with the pt who stated she was not interested. Pt is on Lovenox [address] Fall advises staying on the Lovenox for 48-72 hours and advises her to go home on aspirin and plavix when stable for D/C. Pt is on Zocor. She is on Metoprolol 25 mg PO BID. 05/25 - Cardiology consulted. I discussed with Dr Fall. Pt started on Lovenox 130 mg BID and Aspirin. On Zocor. Dr Fall questions Takotsubo. He advises decreasing the Lovenox to 120 mg BID, and advises staying on the Lovenox for 48- 72 hours. He advises adding Plavix 75 mg daily and metoprolol [address] Fall discussed cath with the pt who stated she was not interested. He did bring up DNR to Pt and daughter. He would like the medicine team to continue the DNR conversation with the pt and family. ECHO: 1. Study is of fair technical quality. 2. Normal LV size with segmental wall motion abnormalities as noted above and overall estimated LVEF 30-35%. 3. No hemodynamically significant valvular disease. 4. Unable to estimate central venous pressure but probably normal or mildly elevated pulmonary artery pressure. 5. Grade 1 diastolic dysfunction. COMMENT: SBE prophylaxis is not recommended. Study favors so-called stress-induced cardiomyopathy versus ischemic event. (3) Elevated troponin Status: Acute Problem Specific Plan: Consult Specialist, Monitor Clinically, Repeat Labs Problem Text: Resolving. Plan for rehabilitation after hospitalization. Pt not able to participate at all in PT yet. Refused yesterday. (4) Fall Status: Acute Problem Specific Plan: Monitor Clinically (5) Contusion, hip Status: Acute Problem Specific Plan: Monitor Clinically (6) Knee contusion Status: Acute Problem Specific Plan: Monitor Clinically (7) Gait disturbance Status: Acute Problem Specific Plan: Monitor Clinically (8) Hyperlipidemia Status: Chronic Problem Text: On Zocor. (9) Asthma Status: Chronic Problem Specific Plan: Monitor Clinically Problem Text: PRN Nebs. (10) Morbid obesity with BMI of 40.0-44.9, adult Plan/VTE VTE Prophylaxis Ordered?: Yes VS, I&O, 24H, Fishbone Vital Signs/I&O Vital Signs Date Time Temp Pulse Resp B/P (MAP) Pulse Ox O2 Delivery O2 Flow Rate FiO2 05/30/17 06:00 97.7 62 19 130/61 (84) 97 Nasal Cannula 3.0 I&O- Last 24 Hours up to 6 AM 05/30/17 06:00 Intake Total 480 ml Output Total 680 ml Balance -200 ml Laboratory Data 24H LABS Laboratory Tests 2 05/30/17 06:07: Anion Gap 6L, Glomerular Filtration Rate > 60.0, Blood Urea Nitrogen 21H, Creatinine 0.71, Sodium Level 143, Potassium Level 4.2, Chloride Level 106, Carbon Dioxide Level 31, Calcium Level 9.3, Aspartate Amino Transf (AST/SGOT) 29 , Alanine Aminotransferase (ALT/SGPT) 33, Alkaline Phosphatase 64, Total Bilirubin 0.5, Triglycerides Level 91, LDL Cholesterol 70.8, Total Protein 6.8, Albumin 2.7L, Albumin/Globulin Ratio 0.66L, Total Cholesterol 124, Non-HDL Cholesterol (LDL + VLDL) 89, Total HDL Cholesterol 35L, Cholesterol/HDL Ratio 3.542 CBC/BMP Laboratory Tests 05/30/17 06:07 Calcium Level 9.3, Aspartate Amino Transf (AST/SGOT) 29, Alanine Aminotransferase (ALT/SGPT) 33, Alkaline Phosphatase 64, Total Bilirubin 0.5, Triglycerides Level 91, LDL Cholesterol 70.8, Total Protein 6.8, Albumin 2.7 L Microbiology Microbiology 05/27/17 Urine Culture - Final, Complete 05/24/17 Urine Culture - Final, Complete Attending Note Attending Note patient seen. agree with notes by Kaitlin Valle and plan of care. Roseann Valle May 30, 2017 07:43 Don Richards MD May 30, 2017 15:45
[2017-05-30] MEDS ORDERED: FUROSEMIDE 20 MG/2 ML VIAL (J1940) IV SCH (09:00)
[2017-05-30] MEDS: SPIRONOLACTONE 25 MG TAB PO SCH (09:40)
[2017-05-30] MEDS: ASPIRIN 81 MG CHEW TABLET PO SCH (09:40)
[2017-05-30] MEDS: CLOPIDOGREL 75 MG TAB PO SCH (09:41)
[2017-05-30] MEDS: LISINOPRIL 5 MG TAB PO SCH (09:41)
[2017-05-30] MEDS: METOPROLOL SUCC *XL* 25MG TAB (TopROL *XL*) PO SCH ×2 (09:41→20:42)
[2017-05-30] MEDS: IPRATROPIUM 0.5MG/ALBUTEROL 2.5MG INH SOL UD 3ML (DUONEB)(J7620) NEB PRN ×2 (10:31→21:36)
[2017-05-30 14:00] VITALS: BP 144/65
[2017-05-30] MEDS: SIMVASTATIN 40 MG TAB PO SCH (20:42)
[2017-05-30 22:00] VITALS: BP 120/66
[2017-05-31] MEDS: ENOXAPARIN 120 MG/0.8 ML SYR (J1650) SC SCH (02:14)
[2017-05-31] MEDS: SLF 3 ML SYR IV SCH ×3 (05:58→20:14)
[2017-05-31 06:00] VITALS: BP 143/99
[2017-05-31 06:40] LABS: BASO % 0.4 % (0.0-1.0); EOS # 0.3 K/mm3 (0.0-0.50); EOS % 8.6 % (0.0-3.0); LARGE UNSTAINED CELL # 0.1 K/mm3 (0.0-0.4); LYMPH # 1.2 K/mm3 (1.5-4.5); LYMPH % 29.8 % (24.0-44.0); MEAN CORPUSCULAR HEMOGLOBIN 32.3 pg (27.0-33.0); MEAN CORPUSCULAR HGB CONC 32.2 g/dl (32.0-36.5); MEAN CORPUSCULAR VOLUME 100.1 fl (80.0-96.0); MONO # 0.4 K/mm3 (0.0-0.8); MONO % 10.8 % (0.0-5.0); NEUTROPHILS # 1.9 K/mm3 (1.8-7.7); NEUTROPHILS % 48.4 % (36.0-66.0); PLATELET COUNT, AUTOMATED 153 k/mm3 (150-450); RED CELL DISTRIBUTION WIDTH 13.6 % (11.5-14.5); WHITE BLOOD COUNT 3.9 K/mm3 (4.0-10.0)
[2017-05-31 07:03] LABS: ALBUMIN 2.7 GM/DL (3.2-5.2); ALBUMIN/GLOBULIN RATIO 0.64 (1.00-1.93); ALKALINE PHOSPHATASE 61 U/L (45-117); ALT/SGPT 32 U/L (12-78); ANION GAP 4 MEQ/L (8-16); AST/SGOT 28 U/L (15-37); BILIRUBIN,TOTAL 0.5 MG/DL (0.2-1.0); BLOOD UREA NITROGEN 21 MG/DL (7-18); CALCIUM LEVEL 9.1 MG/DL (8.8-10.2); CARBON DIOXIDE LEVEL 32 MEQ/L (21-32); CHLORIDE LEVEL 107 MEQ/L (98-107); CREATININE FOR GFR 0.57 MG/DL (0.55-1.02); GLOMERULAR FILTRATION RATE > 60.0 (>32); GLUCOSE, FASTING 104 MG/DL (83-110); MAGNESIUM LEVEL 2.1 MG/DL (1.8-2.4); POTASSIUM SERUM 4.1 MEQ/L (3.5-5.1); SODIUM LEVEL 143 MEQ/L (136-145); TOTAL PROTEIN 6.9 GM/DL (6.4-8.2)
[2017-05-31] MEDS: ASPIRIN 81 MG CHEW TABLET PO SCH (09:16)
[2017-05-31] MEDS: LISINOPRIL 5 MG TAB PO SCH (09:16)
[2017-05-31] MEDS: FUROSEMIDE 20 MG TAB PO SCH (09:16)
[2017-05-31] MEDS: SPIRONOLACTONE 25 MG TAB PO SCH (09:16)
[2017-05-31] MEDS: CLOPIDOGREL 75 MG TAB PO SCH (09:16)
[2017-05-31] MEDS: METOPROLOL SUCC *XL* 25MG TAB (TopROL *XL*) PO SCH ×2 (09:16→20:16)
[2017-05-31] MEDS: IPRATROPIUM 0.5MG/ALBUTEROL 2.5MG INH SOL UD 3ML (DUONEB)(J7620) NEB PRN (13:01)
[2017-05-31] MEDS: NS 1,000 ML IV SCH (13:18)
[2017-05-31 14:00] VITALS: BP 135/60
[2017-05-31] MEDS ORDERED: LevoFLOXacin IV 750 MG in APPROPRIATE DILUENT 1 EA IV SCH (14:00)
[2017-05-31 14:13] LABS: ABG BASE EXCESS 7.3 (-2.0-2.0); ABG HCO3 33.5 MEQ/L (22.0-26.0); ABG PARTIAL PRESSURE CO2 54.2 mmHg (35.0-45.0); ABG STANDARD HCO3 31.1 MEQ/L (22.0-26.0); ABG TOTAL CO2 35.2 MEQ/L (23.0-31.0); ABG pH (ARTERIAL) 7.409 UNITS (7.350-7.450)
--- NOTE | 2017-05-31 17:11 | REP ---
CHEST, PORTABLE: Two AP portable views of the chest are performed and compared to prior study of 05/24/2017. Large hiatal hernia is again noted. There appears to be mild bibasilar fibro atelectatic change without evidence for acute infiltrate. Cardiomediastinal silhouette is unchanged. IMPRESSION: Stable exam with no evidence of acute infiltrate. Signed by Craig Pizarro MD 06/01/2017 05:05 P
--- NOTE | 2017-05-31 17:20 | REP ---
Head CT without contrast: History: Change in mental status. Comparison study December 03, 2005. CT findings: Bony calvarium is intact. There is vascular calcification in the distal carotid arteries bilaterally. Visualized paranasal sinuses are clear. No intraorbital abnormality is seen. There is diffuse moderate cerebral atrophy. An old lacunar infarct is seen in the anterior limb of the left internal capsule on today's CT study. No acute infarction is seen. No hemorrhage, extra-axial fluid collection, mass or midline shift is observed. Impression: Diffuse moderate atrophy. Old lacunar infarct left basal ganglia. Vascular calcification. No acute intracranial abnormalities seen. Signed by Mike Coppola MD 06/01/2017 07:56 A
[2017-05-31] MEDS: SIMVASTATIN 40 MG TAB PO SCH (20:16)
[2017-05-31 22:00] VITALS: BP 132/60
[2017-05-31] MEDS: ACETAMINOPHEN TAB 650MG DOSE (2X325MG) PO PRN (22:20)
[2017-06-01] MEDS: SLF 3 ML SYR IV SCH ×3 (05:47→20:37)
[2017-06-01] MEDS: NS 1,000 ML IV SCH (05:47)
[2017-06-01 06:00] VITALS: BP 150/76
[2017-06-01 06:22] LABS: BASO % 0.3 % (0.0-1.0); EOS # 0.3 K/mm3 (0.0-0.50); EOS % 8.9 % (0.0-3.0); LARGE UNSTAINED CELL # 0.1 K/mm3 (0.0-0.4); LARGE UNSTAINED CELL % 1.7 % (0.0-4.0); LYMPH % 27.2 % (24.0-44.0); MEAN CORPUSCULAR HEMOGLOBIN 32.2 pg (27.0-33.0); MEAN CORPUSCULAR HGB CONC 32.8 g/dl (32.0-36.5); MEAN CORPUSCULAR VOLUME 98.3 fl (80.0-96.0); MONO # 0.3 K/mm3 (0.0-0.8); MONO % 9.2 % (0.0-5.0); NEUTROPHILS # 1.9 K/mm3 (1.8-7.7); NEUTROPHILS % 52.7 % (36.0-66.0); PLATELET COUNT, AUTOMATED 150 k/mm3 (150-450); RED CELL DISTRIBUTION WIDTH 13.5 % (11.5-14.5); WHITE BLOOD COUNT 3.6 K/mm3 (4.0-10.0)
[2017-06-01 06:42] LABS: ALBUMIN 2.7 GM/DL (3.2-5.2); ALBUMIN/GLOBULIN RATIO 0.63 (1.00-1.93); ALKALINE PHOSPHATASE 59 U/L (45-117); ALT/SGPT 33 U/L (12-78); ANION GAP 5 MEQ/L (8-16); AST/SGOT 21 U/L (15-37); BILIRUBIN,TOTAL 0.5 MG/DL (0.2-1.0); BLOOD UREA NITROGEN 18 MG/DL (7-18); CALCIUM LEVEL 9.3 MG/DL (8.8-10.2); CARBON DIOXIDE LEVEL 31 MEQ/L (21-32); CHLORIDE LEVEL 108 MEQ/L (98-107); CREATININE FOR GFR 0.67 MG/DL (0.55-1.02); GLOMERULAR FILTRATION RATE > 60.0 (>32); GLUCOSE, FASTING 99 MG/DL (83-110); MAGNESIUM LEVEL 2.1 MG/DL (1.8-2.4); POTASSIUM SERUM 4.2 MEQ/L (3.5-5.1); SODIUM LEVEL 144 MEQ/L (136-145)
[2017-06-01] MEDS: FUROSEMIDE 20 MG TAB PO SCH (10:15)
[2017-06-01] MEDS: CLOPIDOGREL 75 MG TAB PO SCH (10:15)
[2017-06-01] MEDS: METOPROLOL SUCC *XL* 25MG TAB (TopROL *XL*) PO SCH ×2 (10:16→20:37)
[2017-06-01] MEDS: SPIRONOLACTONE 25 MG TAB PO SCH (10:16)
[2017-06-01] MEDS: ASPIRIN 81 MG CHEW TABLET PO SCH (10:17)
[2017-06-01] MEDS: LISINOPRIL 5 MG TAB PO SCH (10:17)
[2017-06-01 14:00] VITALS: BP 141/67
--- NOTE | 2017-06-01 19:13 | REP ---
AP PORTABLE CHEST: 06/01/2017. Clinical history: Cough. Comparison: 05/31/2017, 05/24/2017, 09/29/2012. Findings: Somewhat lordotic portable chest noted. There is a left ventricular configuration of the heart but also a large hiatal hernia seen on previous studies. Lungs quite hypoinflated. Crowding the markings and with heavier fibrotic changes in the bases. Respiratory motion blur limits evaluation. No gross effusion by blunting of CP angles visible on this study. Tortuous calcified ectatic aorta unchanged. Some levoconvex curvature of the thoracic spine. Impression: 1. Left ventricular configuration. The heart may be exaggerated by the low level of inflation. Some venous hypertension without alon edema or definite effusion. 2. Underlying diffuse fibrosis. Heavier in the bases. This makes it difficult to exclude posterior lower lung zone airspace disease on the left. So does the low level of inflation. Limited examination. 3. Large hiatal hernia again seen. Further limiting evaluation of the posterior lower lung zone on the left. Signed by Oracio Silveira MD 06/02/2017 08:48 A
[2017-06-01] MEDS: SIMVASTATIN 40 MG TAB PO SCH (20:37)
[2017-06-01 22:00] VITALS: BP 143/69
[2017-06-01] MEDS: ACETAMINOPHEN TAB 650MG DOSE (2X325MG) PO PRN (22:55)
[2017-06-02] MEDS: IPRATROPIUM 0.5MG/ALBUTEROL 2.5MG INH SOL UD 3ML (DUONEB)(J7620) NEB PRN (00:16)
[2017-06-02] MEDS ORDERED: FUROSEMIDE 40 MG/4 ML VIAL (J1940) IV ONE (01:30)
[2017-06-02] MEDS: SLF 3 ML SYR IV SCH ×3 (05:14→21:05)
[2017-06-02 06:00] VITALS: BP 136/61
[2017-06-02 06:44] LABS: BASO % 0.4 % (0.0-1.0); EOS # 0.4 K/mm3 (0.0-0.50); LARGE UNSTAINED CELL # 0.1 K/mm3 (0.0-0.4); LYMPH % 25.2 % (24.0-44.0); MEAN CORPUSCULAR HEMOGLOBIN 32.1 pg (27.0-33.0); MEAN CORPUSCULAR HGB CONC 33.1 g/dl (32.0-36.5); MEAN CORPUSCULAR VOLUME 96.9 fl (80.0-96.0); MONO # 0.3 K/mm3 (0.0-0.8); MONO % 9.6 % (0.0-5.0); NEUTROPHILS # 1.9 K/mm3 (1.8-7.7); NEUTROPHILS % 52.9 % (36.0-66.0); PLATELET COUNT, AUTOMATED 154 k/mm3 (150-450); RED CELL DISTRIBUTION WIDTH 13.4 % (11.5-14.5); WHITE BLOOD COUNT 3.6 K/mm3 (4.0-10.0)
[2017-06-02 06:57] LABS: ALBUMIN 2.8 GM/DL (3.2-5.2); ALBUMIN/GLOBULIN RATIO 0.65 (1.00-1.93); ALKALINE PHOSPHATASE 57 U/L (45-117); ALT/SGPT 26 U/L (12-78); ANION GAP 7 MEQ/L (8-16); AST/SGOT 21 U/L (15-37); BILIRUBIN,TOTAL 0.5 MG/DL (0.2-1.0); BLOOD UREA NITROGEN 17 MG/DL (7-18); CALCIUM LEVEL 9.4 MG/DL (8.8-10.2); CARBON DIOXIDE LEVEL 31 MEQ/L (21-32); CHLORIDE LEVEL 104 MEQ/L (98-107); CREATININE FOR GFR 0.63 MG/DL (0.55-1.02); GLOMERULAR FILTRATION RATE > 60.0 (>32); GLUCOSE, FASTING 108 MG/DL (83-110); SODIUM LEVEL 142 MEQ/L (136-145); TOTAL PROTEIN 7.1 GM/DL (6.4-8.2)
[2017-06-02] MEDS: FUROSEMIDE 20 MG TAB PO SCH (08:15)
[2017-06-02] MEDS: CLOPIDOGREL 75 MG TAB PO SCH (08:15)
[2017-06-02] MEDS: ASPIRIN 81 MG CHEW TABLET PO SCH (08:15)
[2017-06-02] MEDS: SPIRONOLACTONE 25 MG TAB PO SCH (08:15)
[2017-06-02] MEDS: METOPROLOL SUCC *XL* 25MG TAB (TopROL *XL*) PO SCH ×2 (08:16→21:05)
[2017-06-02] MEDS: LISINOPRIL 5 MG TAB PO SCH (08:16)
[2017-06-02] MEDS ORDERED: FUROSEMIDE 40 MG TAB PO SCH (09:00)
[2017-06-02 14:00] VITALS: BP 134/61
--- NOTE | 2017-06-02 14:36 | IPNPDOC ---
Subjective Date Seen The patient was seen on 06/02/17. Subjective Chief Complaint/HPI The patient is a 86-year-old female admitted with a reason for visit of FALL. Constitutional: Denies: Chills, Fever Skin: Denies: Rash, Bruising Pulmonary: Reports: Cough, Denies: Dyspnea Cardiovascular: Denies: Chest Pain, Palpitations Gastrointestinal: Denies: Nausea, Vomiting, Abdominal Pain Hematologic: Denies: Bruising Endocrine: Denies: Polydipsia, Polyphagia Objective Physical Examination General Exam: Positive: Alert, No Acute Distress Neck Exam: Positive: Supple, Negative: JVD Chest Exam: Positive: Rales (fine bibasilar rales), Negative: Rhonchi Heart Exam: Positive: Rate Normal, Regular Rhythm Telemetry: Positive: No significant arrhythmia Abdomen Exam: Positive: Normal bowel sounds, Soft, Negative: Tenderness Extremity Exam: Positive: Edema (trace-1+ B/L LE edema) Psych Exam: Negative: Oriented x 3 (alert and oriented to name, hospital, [place]) Assessment /Plan Problems (1) Acute diastolic congestive heart failure, NYHA class 4 Status: Acute Problem Text: 06/02/17: lasix 40 IV last night. some improvement today. will increase lasix to 60 daily po 05/30/17: -300 ml since yesterday. monitor I/O. Mag level ordered. electrolytes are stable. 05/29: Poss secondary to recent MO. LVEF 30-35%. Pt on low dose ARNEL and low dose BB per cardiology. Rales on exam today and prev CXR did not show pulmonary edema , so may be more acute after MO. Cont to have wheezing and SOB at rest, likely secondary to pulmonary edema present now. - IV lasix 40 mg once - lasix 20 mg IV daily and spironolactone 25 mg PO daily; target 1L daily loss - check mag after diuresis. (2) NSTEMI (non-ST elevated myocardial infarction) Problem Text: 05/30/17: cardiology monitoring. monitor I/O and electrolytes with diuresis. 05/29: Currently medical management of N STEMI with beta tony, Arnel, aspirin, Plavix, and statin. Cardiology consulted. Echo possibly consistent with Takotsubo. Currently compensated although patient cont to be wheezy today. Wheezing and rales on exam. - cont med management of NSTEMI with acute CHF 05/28: Currently medical management of N STEMI with beta tony, Arnel, aspirin, Plavix, and statin. Cardiology consulted. Echo possibly consistent with Takotsubo. Currently compensated although patient is somewhat wheezy today. Chest x-ray showed no pulmonary edema. 05/27/17: see cardiology recommendations 05/26 - Seen by cardiology. Trops trending down. Dr Fall questions Takotsubo. Dr Fall discussed cath with the pt who stated she was not interested. Pt is on Lovenox [address] Fall advises staying on the Lovenox for 48-72 hours and advises her to go home on aspirin and plavix when stable for D/C. Pt is on Zocor. She is on Metoprolol 25 mg PO BID. 05/25 - Cardiology consulted. I discussed with Dr Fall. Pt started on Lovenox 130 mg BID and Aspirin. On Zocor. Dr Fall questions Takotsubo. He advises decreasing the Lovenox to 120 mg BID, and advises staying on the Lovenox for 48- 72 hours. He advises adding Plavix 75 mg daily and metoprolol [address] Fall discussed cath with the pt who stated she was not interested. He did bring up DNR to Pt and daughter. He would like the medicine team to continue the DNR conversation with the pt and family. ECHO: 1. Study is of fair technical quality. 2. Normal LV size with segmental wall motion abnormalities as noted above and overall estimated LVEF 30-35%. 3. No hemodynamically significant valvular disease. 4. Unable to estimate central venous pressure but probably normal or mildly elevated pulmonary artery pressure. 5. Grade 1 diastolic dysfunction. COMMENT: SBE prophylaxis is not recommended. Study favors so-called stress-induced cardiomyopathy versus ischemic event. (3) Elevated troponin Status: Acute Problem Specific Plan: Consult Specialist, Monitor Clinically, Repeat Labs Problem Text: Resolving. Plan for rehabilitation after hospitalization. Pt not able to participate at all in PT yet. Refused yesterday. (4) Fall Status: Acute Problem Specific Plan: Monitor Clinically (5) Contusion, hip Status: Acute Problem Specific Plan: Monitor Clinically (6) Knee contusion Status: Acute Problem Specific Plan: Monitor Clinically (7) Gait disturbance Status: Acute Problem Specific Plan: Monitor Clinically (8) Hyperlipidemia Status: Chronic Problem Text: On Zocor. (9) Asthma Status: Chronic Problem Specific Plan: Monitor Clinically Problem Text: PRN Nebs. (10) Morbid obesity with BMI of 40.0-44.9, adult Plan/VTE VTE Prophylaxis Ordered?: Yes VS, I&O, 24H, Fishbone Vital Signs/I&O Vital Signs Date Time Temp Pulse Resp B/P (MAP) Pulse Ox O2 Delivery O2 Flow Rate FiO2 06/02/17 08:20 Nasal Cannula 1.0 06/02/17 08:16 63 145/69 06/02/17 06:00 98.9 93 14 I&O- Last 24 Hours up to 6 AM 06/02/17 05:59 Intake Total 2740 ml Output Total 600 ml Balance 2140 ml Laboratory Data 24H LABS Laboratory Tests 2 06/02/17 06:33: White Blood Count 3.6L, Red Blood Count 3.81L, Hemoglobin 12.2, Hematocrit 36.9 , Mean Corpuscular Volume 96.9H, Mean Corpuscular Hemoglobin 32.1, Mean Corpuscular Hemoglobin Concent 33.1, Red Cell Distribution Width 13.4, Platelet Count 154, Neutrophils (%) (Auto) 52.9, Lymphocytes (%) (Auto) 25.2, Monocytes ( %) (Auto) 9.6H, Eosinophils (%) (Auto) 10.0H, Basophils (%) (Auto) 0.4, Neutrophils # (Auto) 1.9, Lymphocytes # (Auto) 1.0L, Monocytes # (Auto) 0.3, Eosinophils # (Auto) 0.4, Basophils # (Auto) 0.0, Large Unclassified Cells % 2.0 , Large Unclassified Cells # 0.1, Anion Gap 7L, Glomerular Filtration Rate > 60.0, Blood Urea Nitrogen 17, Creatinine 0.63, Sodium Level 142, Potassium Level 4.0, Chloride Level 104, Carbon Dioxide Level 31, Calcium Level 9.4, Aspartate Amino Transf (AST/SGOT) 21, Alanine Aminotransferase (ALT/SGPT) 26, Alkaline Phosphatase 57, Total Bilirubin 0.5, Total Protein 7.1, Albumin 2.8L, Magnesium Level 2.0, Albumin/Globulin Ratio 0.65L CBC/BMP Laboratory Tests 06/02/17 06:33 Red Blood Count 3.81 L, Mean Corpuscular Volume 96.9 H, Mean Corpuscular Hemoglobin 32.1, Mean Corpuscular Hemoglobin Concent 33.1, Red Cell Distribution Width 13.4, Neutrophils (%) (Auto) 52.9, Lymphocytes (%) (Auto) 25.2, Monocytes (%) (Auto) 9.6 H, Eosinophils (%) (Auto) 10.0 H, Basophils (%) ( Auto) 0.4, Neutrophils # (Auto) 1.9, Lymphocytes # (Auto) 1.0 L, Monocytes # ( Auto) 0.3, Eosinophils # (Auto) 0.4, Basophils # (Auto) 0.0, Calcium Level 9.4, Aspartate Amino Transf (AST/SGOT) 21, Alanine Aminotransferase (ALT/SGPT) 26, Alkaline Phosphatase 57, Total Bilirubin 0.5, Total Protein 7.1, Albumin 2.8 L Microbiology Microbiology 05/31/17 Blood Culture - Preliminary, Resulted No Growth after 48 hours. All Specime... 05/31/17 Blood Culture - Preliminary, Resulted No Growth after 48 hours. All Specime... 05/31/17 Urine Culture - Preliminary, Resulted Enterobacter Aerogenes Serratia Fonticola Strep Agalactiae Group B 05/27/17 Urine Culture - Final, Complete 05/24/17 Urine Culture - Final, Complete Don Richards MD Jun 02, 2017 14:36
[2017-06-02] MEDS: ACETAMINOPHEN TAB 650MG DOSE (2X325MG) PO PRN (17:54)
[2017-06-02] MEDS: SIMVASTATIN 40 MG TAB PO SCH (21:04)
--- NOTE | 2017-06-02 21:22 | IPN ---
DATE: 06/01/2017 SUBJECTIVE: The patient was seen yesterday and an addendum was created to her discharge summary which should be together taken as yesterday's progress note. Today the patient is seen. She is more alert, conversant, although not exactly making sense, clearly not fully oriented, but is able to eat a little bit and is much more alert than she was yesterday when concern was raised about development of toxic encephalopathy related to sepsis versus stroke versus postictal state. At that time she was essentially unresponsive. Workup ensued. Results are included in the laboratory data and objective discussion below. At this time she is denying trouble with her breathing, although she does have moist sounding respirations. She is complaining of some back discomfort and exhibiting an intermittent cough for which her daughter is requesting and intitussive. PHYSICAL EXAMINATION: Today, blood pressure 141/67, pulse 56, respiratory rate 18, unlabored, 93% on room air. Although there is no evidence for accessory muscle use and no nasal flaring, the patient does have moist respirations and an intermittent cough. Neck veins cannot be assessed due to obesity. Abdomen: Protuberant. No palpable mass noted. Heart: Regular rhythm. No murmurs detected. Auscultation of chest is limited due to limited diaphragmatic excursion and obesity, but no wheezes are heard and no definitive rales are noted. She has trace lower extremity edema and touch seems tender with even light touch on her extremities. LABORATORY DATA: Yesterday white count was 3900, 3600 today. Hemoglobin 12.2 today, platelet count 150,000. Chemistry: Sodium 144 potassium 4.2, BUN 18, creatinine 0.67, CO2 31, anion gap low at 5. Albumin 2.7. She regards the examiner and makes vocalizations in response to being spoken to and answers yes, no questions seemingly appropriately but is not able to construct sentences or independently describe her location. She was able to demonstrate taking some nutrition and fluids orally today. IMAGING: Imaging study including a CT of the head showed moderate diffuse atrophy, old lacunar infarct left basal ganglia, and vascular calcifications. 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 Chest x-ray shows large hiatus hernia, mild basilar fibroatelectatic change without evidence of infiltrate. (That was from yesterday). A repeat x-ray will be ordered because of ongoing cough and moist sounding respirations. IMPRESSION: Change in mental status, which has now improved. She, according to her daughter, is not entirely back to her baseline and with respect to level of alertness and ability to engage after having been initially for a fall we are suspicious that she might have had a small stroke, but the CT done yesterday was negative. If her mental status continues to be sub-par as of tomorrow, consider repeat CT to see if there is an evolving small stroke or consider MR. Will repeat her chest x-ray today to reevaluate her respiratory status. O2 saturation 93% on room air is adequate, but just barely. Because she is able to take by mouth (p.o.) and there is no active evidence of infection will stop IV antibiotic and IV fluids. Hopefully we can make progress in another day toward getting her ready for placement since ultimately I think that is where things are destined.
[2017-06-02 22:00] VITALS: BP 136/63
[2017-06-03] MEDS: SLF 3 ML SYR IV SCH ×3 (05:48→21:22)
[2017-06-03 06:00] VITALS: BP 131/70
[2017-06-03 06:42] LABS: MEAN CORPUSCULAR HEMOGLOBIN 32.4 pg (27.0-33.0); MEAN CORPUSCULAR HGB CONC 33.4 g/dl (32.0-36.5); MEAN CORPUSCULAR VOLUME 97.1 fl (80.0-96.0); RED CELL DISTRIBUTION WIDTH 13.5 % (11.5-14.5); WHITE BLOOD COUNT 4.3 K/mm3 (4.0-10.0)
[2017-06-03 07:01] LABS: ANION GAP 6 MEQ/L (8-16); BLOOD UREA NITROGEN 19 MG/DL (7-18); CALCIUM LEVEL 9.7 MG/DL (8.8-10.2); CARBON DIOXIDE LEVEL 33 MEQ/L (21-32); CHLORIDE LEVEL 105 MEQ/L (98-107); CREATININE FOR GFR 0.67 MG/DL (0.55-1.02); GLOMERULAR FILTRATION RATE > 60.0 (>32); GLUCOSE, FASTING 107 MG/DL (83-110); POTASSIUM SERUM 3.9 MEQ/L (3.5-5.1); SODIUM LEVEL 144 MEQ/L (136-145)
--- NOTE | 2017-06-03 08:58 | IPNPDOC ---
Subjective Date Seen The patient was seen on 06/03/17. Subjective Chief Complaint/HPI The patient is a 86-year-old female admitted with a reason for visit of FALL. General: Reports: ROS Unobtainable Objective Physical Examination General Exam: Positive: Alert, No Acute Distress Eye Exam: Positive: PERRLA, EOMI ENT Exam: Positive: Mucous membr. moist/pink Neck Exam: Positive: Supple, Negative: JVD Chest Exam: Positive: Rales (fine bibasilar rales,minimal and less than yesterday.(06/02)), Negative: Rhonchi Heart Exam: Positive: Rate Normal, Regular Rhythm Telemetry: Positive: No significant arrhythmia Abdomen Exam: Positive: Normal bowel sounds, Soft, Negative: Tenderness Extremity Exam: Positive: Edema (edema essentially resolved today) Neuro Exam: Positive: Other (responds to people in room, but confabulating) Psych Exam: Negative: Oriented x 3 (alert and oriented to name, hospital, [place]) Assessment /Plan Problems (1) Acute diastolic congestive heart failure, NYHA class 4 Status: Acute Response to Treatment: Improving Problem Text: 06/03/17: increased furosemide to 60 mg daily which will start today. 06/02/17: lasix 40 IV last night. some improvement today. will increase lasix to 60 daily po 05/30/17: -300 ml since yesterday. monitor I/O. Mag level ordered. electrolytes are stable. 05/29: Poss secondary to recent NH. LVEF 30-35%. Pt on low dose ARNEL and low dose BB per cardiology. Rales on exam today and prev CXR did not show pulmonary edema , so may be more acute after NH. Cont to have wheezing and SOB at rest, likely secondary to pulmonary edema present now. - IV lasix 40 mg once - lasix 20 mg IV daily and spironolactone 25 mg PO daily; target 1L daily loss - check mag after diuresis. (2) NSTEMI (non-ST elevated myocardial infarction) Status: Acute Response to Treatment: Stable, Improving Problem Text: 05/30/17: cardiology monitoring. monitor I/O and electrolytes with diuresis. 05/29: Currently medical management of N STEMI with beta tony, Arnel, aspirin, Plavix, and statin. Cardiology consulted. Echo possibly consistent with Takotsubo. Currently compensated although patient cont to be wheezy today. Wheezing and rales on exam. - cont med management of NSTEMI with acute CHF 05/28: Currently medical management of N STEMI with beta tony, Arnel, aspirin, Plavix, and statin. Cardiology consulted. Echo possibly consistent with Takotsubo. Currently compensated although patient is somewhat wheezy today. Chest x-ray showed no pulmonary edema. 05/27/17: see cardiology recommendations 05/26 - Seen by cardiology. Trops trending down. Dr Fall questions Takotsubo. Dr Fall discussed cath with the pt who stated she was not interested. Pt is on Lovenox [address] Fall advises staying on the Lovenox for 48-72 hours and advises her to go home on aspirin and plavix when stable for D/C. Pt is on Zocor. She is on Metoprolol 25 mg PO BID. 05/25 - Cardiology consulted. I discussed with Dr Fall. Pt started on Lovenox 130 mg BID and Aspirin. On Zocor. Dr Fall questions Takotsubo. He advises decreasing the Lovenox to 120 mg BID, and advises staying on the Lovenox for 48- 72 hours. He advises adding Plavix 75 mg daily and metoprolol [address] Fall discussed cath with the pt who stated she was not interested. He did bring up DNR to Pt and daughter. He would like the medicine team to continue the DNR conversation with the pt and family. ECHO: 1. Study is of fair technical quality. 2. Normal LV size with segmental wall motion abnormalities as noted above and overall estimated LVEF 30-35%. 3. No hemodynamically significant valvular disease. 4. Unable to estimate central venous pressure but probably normal or mildly elevated pulmonary artery pressure. 5. Grade 1 diastolic dysfunction. COMMENT: SBE prophylaxis is not recommended. Study favors so-called stress-induced cardiomyopathy versus ischemic event. (3) Elevated troponin Status: Acute Problem Specific Plan: Consult Specialist, Monitor Clinically, Repeat Labs Problem Text: Resolving. Plan for rehabilitation after hospitalization. Pt not able to participate at all in PT yet. Refused yesterday. (4) Fall Status: Acute Problem Specific Plan: Monitor Clinically (5) Contusion, hip Status: Acute Problem Specific Plan: Monitor Clinically (6) Knee contusion Status: Acute Problem Specific Plan: Monitor Clinically (7) Gait disturbance Status: Acute Problem Specific Plan: Monitor Clinically (8) Hyperlipidemia Status: Chronic Problem Text: On Zocor. (9) Asthma Status: Chronic Problem Specific Plan: Monitor Clinically Problem Text: PRN Nebs. (10) Morbid obesity with BMI of 40.0-44.9, adult Plan/VTE VTE Prophylaxis Ordered?: Yes Plan Anticipated Discharge: Sub Acute Rehab (not clear that she will be able to participate adequately for sub acute rehab due to chronic mental status limitations) VS, I&O, 24H, Fishbone Vital Signs/I&O Vital Signs Date Time Temp Pulse Resp B/P (MAP) Pulse Ox O2 Delivery O2 Flow Rate FiO2 06/03/17 06:00 97.9 74 20 131/70 (90) 96 Nasal Cannula 2.0 I&O- Last 24 Hours up to 6 AM 06/03/17 05:59 Intake Total 600 ml Output Total 300 ml Balance 300 ml Laboratory Data 24H LABS Laboratory Tests 2 06/03/17 06:21: Anion Gap 6L, Glomerular Filtration Rate > 60.0, Blood Urea Nitrogen 19H, Creatinine 0.67, Sodium Level 144, Potassium Level 3.9, Chloride Level 105, Carbon Dioxide Level 33H, Calcium Level 9.7 CBC/BMP Laboratory Tests 06/03/17 06:21 Red Blood Count 3.73 L, Mean Corpuscular Volume 97.1 H, Mean Corpuscular Hemoglobin 32.4, Mean Corpuscular Hemoglobin Concent 33.4, Red Cell Distribution Width 13.5, Calcium Level 9.7 Microbiology Microbiology 05/31/17 Blood Culture - Preliminary, Resulted No Growth after 48 hours. All Specime... 05/31/17 Blood Culture - Preliminary, Resulted No Growth after 48 hours. All Specime... 05/31/17 Urine Culture - Final, Complete Enterobacter Aerogenes Serratia Fonticola Strep Agalactiae Group B Aerococcus Viridans 05/27/17 Urine Culture - Final, Complete 05/24/17 Urine Culture - Final, Complete Don Richards MD Jun 03, 2017 08:58
[2017-06-03] MEDS ORDERED: FUROSEMIDE 40 MG TAB PO SCH (09:00)
[2017-06-03] MEDS: LISINOPRIL 5 MG TAB PO SCH (10:34)
[2017-06-03] MEDS: ASPIRIN 81 MG CHEW TABLET PO SCH (10:34)
[2017-06-03] MEDS: FUROSEMIDE 20 MG TAB PO SCH (10:34)
[2017-06-03] MEDS: SPIRONOLACTONE 25 MG TAB PO SCH (10:35)
[2017-06-03] MEDS: CLOPIDOGREL 75 MG TAB PO SCH (10:35)
[2017-06-03] MEDS: METOPROLOL SUCC *XL* 25MG TAB (TopROL *XL*) PO SCH ×2 (10:35→20:36)
[2017-06-03] MEDS: IPRATROPIUM 0.5MG/ALBUTEROL 2.5MG INH SOL UD 3ML (DUONEB)(J7620) NEB SCH ×3 (11:57→19:33)
[2017-06-03 14:00] VITALS: BP 133/69
[2017-06-03] MEDS: SIMVASTATIN 40 MG TAB PO SCH (20:36)
[2017-06-03] MEDS: ACETAMINOPHEN TAB 650MG DOSE (2X325MG) PO PRN (20:37)
[2017-06-03 22:00] VITALS: BP 117/58
[2017-06-04] MEDS: SLF 3 ML SYR IV SCH ×3 (05:20→21:23)
[2017-06-04 06:00] VITALS: BP 149/67
[2017-06-04] MEDS: IPRATROPIUM 0.5MG/ALBUTEROL 2.5MG INH SOL UD 3ML (DUONEB)(J7620) NEB SCH ×4 (07:35→19:42)
[2017-06-04] MEDS: CLOPIDOGREL 75 MG TAB PO SCH (09:35)
[2017-06-04] MEDS: ASPIRIN 81 MG CHEW TABLET PO SCH (09:35)
[2017-06-04] MEDS: FUROSEMIDE 20 MG TAB PO SCH (09:35)
[2017-06-04] MEDS: SPIRONOLACTONE 25 MG TAB PO SCH (09:36)
[2017-06-04] MEDS: LISINOPRIL 5 MG TAB PO SCH (09:36)
[2017-06-04] MEDS: METOPROLOL SUCC *XL* 25MG TAB (TopROL *XL*) PO SCH ×2 (09:36→21:17)
[2017-06-04 14:00] VITALS: BP 118/62
[2017-06-04] MEDS: ACETAMINOPHEN TAB 650MG DOSE (2X325MG) PO PRN (17:24)
[2017-06-04] MEDS: SIMVASTATIN 40 MG TAB PO SCH (21:17)
[2017-06-04] MEDS: NYSTATIN 100,000 UNITS/GM TOPICAL PWD 15 GM TOP SCH (21:17)
[2017-06-04] MEDS: LIDOCAINE 5% (LIDODERM) PATCH TD SCH (21:18)
[2017-06-04 22:00] VITALS: BP 103/53
[2017-06-05] MEDS: SLF 3 ML SYR IV SCH (05:36)
[2017-06-05 06:00] VITALS: BP 105/54
[2017-06-05] MEDS: ACETAMINOPHEN TAB 650MG DOSE (2X325MG) PO PRN ×2 (06:55→21:20)
[2017-06-05] MEDS: IPRATROPIUM 0.5MG/ALBUTEROL 2.5MG INH SOL UD 3ML (DUONEB)(J7620) NEB SCH ×4 (08:04→19:29)
[2017-06-05] MEDS: METOPROLOL SUCC *XL* 25MG TAB (TopROL *XL*) PO SCH ×2 (09:00→21:19)
[2017-06-05] MEDS: LISINOPRIL 5 MG TAB PO SCH (09:00)
[2017-06-05] MEDS: **NOTE PATIENT COMMENT** MISC XX SCH (09:00)
[2017-06-05 10:45] LABS: BASO # 0.1 K/mm3 (0.0-0.2); BASO % 1.5 % (0.0-1.0); EOS # 0.3 K/mm3 (0.0-0.50); EOS % 5.4 % (0.0-3.0); LARGE UNSTAINED CELL # 0.1 K/mm3 (0.0-0.4); LARGE UNSTAINED CELL % 2.1 % (0.0-4.0); LYMPH # 0.9 K/mm3 (1.5-4.5); LYMPH % 16.3 % (24.0-44.0); MEAN CORPUSCULAR HEMOGLOBIN 31.9 pg (27.0-33.0); MEAN CORPUSCULAR HGB CONC 32.8 g/dl (32.0-36.5); MEAN CORPUSCULAR VOLUME 97.4 fl (80.0-96.0); MONO # 0.4 K/mm3 (0.0-0.8); MONO % 7.7 % (0.0-5.0); NEUTROPHILS # 3.9 K/mm3 (1.8-7.7); PLATELET COUNT, AUTOMATED 175 k/mm3 (150-450); RED CELL DISTRIBUTION WIDTH 13.5 % (11.5-14.5); WHITE BLOOD COUNT 5.8 K/mm3 (4.0-10.0)
[2017-06-05] MEDS: CLOPIDOGREL 75 MG TAB PO SCH (10:52)
[2017-06-05] MEDS: SPIRONOLACTONE 25 MG TAB PO SCH (10:52)
[2017-06-05] MEDS: FUROSEMIDE 20 MG TAB PO SCH (10:53)
[2017-06-05] MEDS: ASPIRIN 81 MG CHEW TABLET PO SCH (10:53)
[2017-06-05] MEDS: NYSTATIN 100,000 UNITS/GM TOPICAL PWD 15 GM TOP SCH ×2 (11:09→21:20)
[2017-06-05 11:12] LABS: ALBUMIN 3.3 GM/DL (3.2-5.2); ALBUMIN/GLOBULIN RATIO 0.83 (1.00-1.93); BILIRUBIN,TOTAL 0.5 MG/DL (0.2-1.0); CALCIUM LEVEL 10.1 MG/DL (8.8-10.2); CREATININE FOR GFR 0.95 MG/DL (0.55-1.02); GLOMERULAR FILTRATION RATE 59.1 (>32); POTASSIUM SERUM 4.1 MEQ/L (3.5-5.1); TOTAL PROTEIN 7.3 GM/DL (6.4-8.2)
[2017-06-05 14:00] VITALS: BP 147/74
[2017-06-05] MEDS: LIDOCAINE 5% (LIDODERM) PATCH TD SCH (21:14)
[2017-06-05] MEDS: SIMVASTATIN 40 MG TAB PO SCH (21:19)
[2017-06-05 22:00] VITALS: BP 120/58
[2017-06-06 05:54] LABS: MEAN CORPUSCULAR HEMOGLOBIN 32.5 pg (27.0-33.0); MEAN CORPUSCULAR VOLUME 98.5 fl (80.0-96.0); RED CELL DISTRIBUTION WIDTH 13.8 % (11.5-14.5); WHITE BLOOD COUNT 4.2 K/mm3 (4.0-10.0)
[2017-06-06 06:00] VITALS: BP 131/57
[2017-06-06 06:16] LABS: ANION GAP 4 MEQ/L (8-16); BLOOD UREA NITROGEN 28 MG/DL (7-18); CALCIUM LEVEL 10.3 MG/DL (8.8-10.2); CARBON DIOXIDE LEVEL 33 MEQ/L (21-32); CHLORIDE LEVEL 106 MEQ/L (98-107); GLOMERULAR FILTRATION RATE > 60.0 (>32); GLUCOSE, FASTING 108 MG/DL (83-110); POTASSIUM SERUM 4.1 MEQ/L (3.5-5.1); SODIUM LEVEL 143 MEQ/L (136-145)
[2017-06-06] MEDS: IPRATROPIUM 0.5MG/ALBUTEROL 2.5MG INH SOL UD 3ML (DUONEB)(J7620) NEB SCH ×4 (07:28→19:51)
[2017-06-06] MEDS: **NOTE PATIENT COMMENT** MISC XX SCH (09:00)
[2017-06-06] MEDS: ASPIRIN 81 MG CHEW TABLET PO SCH (09:55)
[2017-06-06] MEDS: LISINOPRIL 5 MG TAB PO SCH (09:55)
[2017-06-06] MEDS: FUROSEMIDE 40 MG TAB PO SCH (09:55)
[2017-06-06] MEDS: CLOPIDOGREL 75 MG TAB PO SCH (09:56)
[2017-06-06] MEDS: SPIRONOLACTONE 25 MG TAB PO SCH (09:56)
[2017-06-06] MEDS: METOPROLOL SUCC *XL* 25MG TAB (TopROL *XL*) PO SCH ×2 (09:56→20:30)
[2017-06-06] MEDS: NYSTATIN 100,000 UNITS/GM TOPICAL PWD 15 GM TOP SCH ×2 (09:59→20:30)
[2017-06-06 14:00] VITALS: BP 145/63
[2017-06-06 20:00] VITALS: BP 130/59
[2017-06-06] MEDS: SIMVASTATIN 40 MG TAB PO SCH (20:30)
[2017-06-06] MEDS: LIDOCAINE 5% (LIDODERM) PATCH TD SCH (20:30)
--- NOTE | 2017-06-06 22:11 | DSES ---
DATE OF ADMISSION: 05/24/2017 DATE OF DISCHARGE: PRIMARY CARE PHYSICIAN: Dr. Ty Warren ATTENDING PHYSICIAN: Dr. Don Richards HISTORY OF PRESENT ILLNESS: An 86-year-old female who has been nonambulatory for the past 2 years presenting to the emergency room after falling at home. Patient had been trying to get out of bed to go to the bathroom. Had fallen and hit a stool with her head. Patient developed right hip bruising as she fell forward with no head trauma or loss of consciousness (LOC). Workup in the emergency room proved negative for any significant severe acute issues. Patient was admitted to evaluate physical capabilities after a fall. HOSPITAL COURSE: Patient did require some diuresis for acute on chronic congestive heart failure. She received Lasix 20 mg intravenous (IV) with excellent diuresis. Physical therapy evaluated patient and has actually advised patient needs a Lucina Stedy lift. Has been deemed unsafe to return home and recommends rehabilitation versus long-term care placement. Patient is status post cardiology evaluation due to elevated troponin. Dr. Fall evaluated patient. It was noted patient does not have acute ST-T abnormalities to demonstrate an acute myocardial infarction (AR). No chest discomfort. Per cardiology opinion, more likely diagnosis is myocardial infarction, but Takotsubo cardiomyopathy is a second option. It was recommended that patient continue medical management. Patient did not want to consider any coronary intervention. It was advised patient receive Lovenox for 48-72 hours and start aspirin and Plavix, which has been completed. Patient's electrolytes have remained stable throughout hospitalization. Hemoglobin and hematocrit have remained stable along with white blood cell count. Patient has continued to have some intermittent confusion as well. Patient and family services (PFS) has been involved and plans on placement of patient to a more appropriate facility for her level of care. DISCHARGE DIAGNOSES: 1. Acute myocardial infarction. 2. Status post fall. 3. Chronic obstructive pulmonary disease with chronic oxygen dependence. 4. Diabetes. 5. Chronic venous insufficiency with venous stasis dermatitis. PLAN: Patient will be discharged t long-term care facility. Further instructions will be provided at that time.
[2017-06-07 06:00] VITALS: BP 108/55
[2017-06-07] MEDS: IPRATROPIUM 0.5MG/ALBUTEROL 2.5MG INH SOL UD 3ML (DUONEB)(J7620) NEB SCH ×4 (07:18→19:57)
[2017-06-07] MEDS: **NOTE PATIENT COMMENT** MISC XX SCH (09:00)
[2017-06-07] MEDS: CLOPIDOGREL 75 MG TAB PO SCH (10:31)
[2017-06-07] MEDS: ASPIRIN 81 MG CHEW TABLET PO SCH (10:31)
[2017-06-07] MEDS: SPIRONOLACTONE 25 MG TAB PO SCH (10:32)
[2017-06-07] MEDS: FUROSEMIDE 40 MG TAB PO SCH (10:32)
[2017-06-07] MEDS: LISINOPRIL 5 MG TAB PO SCH (10:33)
[2017-06-07] MEDS: METOPROLOL SUCC *XL* 25MG TAB (TopROL *XL*) PO SCH ×2 (10:33→20:27)
[2017-06-07] MEDS: NYSTATIN 100,000 UNITS/GM TOPICAL PWD 15 GM TOP SCH ×2 (10:34→20:28)
[2017-06-07 14:00] VITALS: BP 107/49
[2017-06-07] MEDS: SIMVASTATIN 40 MG TAB PO SCH (20:27)
[2017-06-07] MEDS: LIDOCAINE 5% (LIDODERM) PATCH TD SCH (20:28)
[2017-06-07 22:00] VITALS: BP 130/61
[2017-06-08] MEDS: ACETAMINOPHEN TAB 650MG DOSE (2X325MG) PO PRN ×2 (05:57→21:51)
[2017-06-08 06:00] VITALS: BP 132/63
[2017-06-08] MEDS: IPRATROPIUM 0.5MG/ALBUTEROL 2.5MG INH SOL UD 3ML (DUONEB)(J7620) NEB SCH ×4 (07:06→20:00)
[2017-06-08] MEDS: METOPROLOL SUCC *XL* 25MG TAB (TopROL *XL*) PO SCH ×2 (10:04→21:51)
[2017-06-08] MEDS: FUROSEMIDE 40 MG TAB PO SCH (10:04)
[2017-06-08] MEDS: NYSTATIN 100,000 UNITS/GM TOPICAL PWD 15 GM TOP SCH ×2 (10:05→21:00)
[2017-06-08] MEDS: ASPIRIN 81 MG CHEW TABLET PO SCH (10:05)
[2017-06-08] MEDS: LISINOPRIL 5 MG TAB PO SCH (10:05)
[2017-06-08] MEDS: SPIRONOLACTONE 25 MG TAB PO SCH (10:05)
[2017-06-08] MEDS: CLOPIDOGREL 75 MG TAB PO SCH (10:05)
[2017-06-08] MEDS: **NOTE PATIENT COMMENT** MISC XX SCH (10:06)
[2017-06-08 14:00] VITALS: BP 112/54
[2017-06-08] MEDS: SIMVASTATIN 40 MG TAB PO SCH (21:51)
[2017-06-08] MEDS: LIDOCAINE 5% (LIDODERM) PATCH TD SCH (21:51)
[2017-06-08 22:00] VITALS: BP 143/77
[2017-06-09 06:00] VITALS: BP 148/72
[2017-06-09] MEDS: IPRATROPIUM 0.5MG/ALBUTEROL 2.5MG INH SOL UD 3ML (DUONEB)(J7620) NEB SCH ×4 (07:14→19:47)
[2017-06-09] MEDS: NYSTATIN 100,000 UNITS/GM TOPICAL PWD 15 GM TOP SCH ×2 (09:00→21:39)
[2017-06-09] MEDS: **NOTE PATIENT COMMENT** MISC XX SCH (09:00)
[2017-06-09] MEDS: LISINOPRIL 5 MG TAB PO SCH (09:15)
[2017-06-09] MEDS: ASPIRIN 81 MG CHEW TABLET PO SCH (09:15)
[2017-06-09] MEDS: FUROSEMIDE 40 MG TAB PO SCH (09:15)
[2017-06-09] MEDS: METOPROLOL SUCC *XL* 25MG TAB (TopROL *XL*) PO SCH ×2 (09:16→21:38)
[2017-06-09] MEDS: CLOPIDOGREL 75 MG TAB PO SCH (09:16)
[2017-06-09] MEDS: SPIRONOLACTONE 25 MG TAB PO SCH (09:16)
[2017-06-09 14:00] VITALS: BP 98/60
[2017-06-09] MEDS: SIMVASTATIN 40 MG TAB PO SCH (21:38)
[2017-06-09] MEDS: LIDOCAINE 5% (LIDODERM) PATCH TD SCH (21:39)
[2017-06-09 22:00] VITALS: BP 109/54
[2017-06-10 06:00] VITALS: BP 103/65
[2017-06-10] MEDS: IPRATROPIUM 0.5MG/ALBUTEROL 2.5MG INH SOL UD 3ML (DUONEB)(J7620) NEB SCH ×4 (07:09→19:20)
[2017-06-10] MEDS: SPIRONOLACTONE 25 MG TAB PO SCH (09:57)
[2017-06-10] MEDS: CLOPIDOGREL 75 MG TAB PO SCH (09:57)
[2017-06-10] MEDS: LISINOPRIL 5 MG TAB PO SCH (09:58)
[2017-06-10] MEDS: FUROSEMIDE 40 MG TAB PO SCH (09:58)
[2017-06-10] MEDS: ASPIRIN 81 MG CHEW TABLET PO SCH (09:58)
[2017-06-10] MEDS: METOPROLOL SUCC *XL* 25MG TAB (TopROL *XL*) PO SCH ×2 (09:58→21:41)
[2017-06-10] MEDS: NYSTATIN 100,000 UNITS/GM TOPICAL PWD 15 GM TOP SCH ×2 (09:59→21:37)
[2017-06-10] MEDS: **NOTE PATIENT COMMENT** MISC XX SCH (09:59)
[2017-06-10 14:00] VITALS: BP 121/56
[2017-06-10] MEDS: SIMVASTATIN 40 MG TAB PO SCH (21:34)
[2017-06-10] MEDS: LIDOCAINE 5% (LIDODERM) PATCH TD SCH (21:35)
[2017-06-10] MEDS: ACETAMINOPHEN TAB 650MG DOSE (2X325MG) PO PRN (21:43)
[2017-06-10 22:00] VITALS: BP 109/64
[2017-06-11 06:00] VITALS: BP 110/54
[2017-06-11] MEDS: IPRATROPIUM 0.5MG/ALBUTEROL 2.5MG INH SOL UD 3ML (DUONEB)(J7620) NEB SCH ×4 (08:10→19:18)
[2017-06-11] MEDS: ACETAMINOPHEN TAB 650MG DOSE (2X325MG) PO PRN ×2 (08:54→18:50)
[2017-06-11] MEDS: FUROSEMIDE 40 MG TAB PO SCH (08:54)
[2017-06-11] MEDS: ASPIRIN 81 MG CHEW TABLET PO SCH (08:54)
[2017-06-11] MEDS: METOPROLOL SUCC *XL* 25MG TAB (TopROL *XL*) PO SCH ×2 (08:54→19:36)
[2017-06-11] MEDS: **NOTE PATIENT COMMENT** MISC XX SCH (08:55)
[2017-06-11] MEDS: NYSTATIN 100,000 UNITS/GM TOPICAL PWD 15 GM TOP SCH ×2 (08:55→19:37)
[2017-06-11] MEDS: LISINOPRIL 5 MG TAB PO SCH (08:55)
[2017-06-11] MEDS: CLOPIDOGREL 75 MG TAB PO SCH (08:55)
[2017-06-11] MEDS: SPIRONOLACTONE 25 MG TAB PO SCH (08:55)
[2017-06-11] MEDS: SIMVASTATIN 40 MG TAB PO SCH (19:35)
[2017-06-11] MEDS: LIDOCAINE 5% (LIDODERM) PATCH TD SCH (19:36)
[2017-06-12] MEDS: ACETAMINOPHEN TAB 650MG DOSE (2X325MG) PO PRN ×2 (01:13→20:55)
[2017-06-12 06:00] VITALS: BP 130/60
[2017-06-12] MEDS: IPRATROPIUM 0.5MG/ALBUTEROL 2.5MG INH SOL UD 3ML (DUONEB)(J7620) NEB SCH ×4 (08:00→19:23)
[2017-06-12] MEDS: **NOTE PATIENT COMMENT** MISC XX SCH (09:00)
[2017-06-12] MEDS: METOPROLOL SUCC *XL* 25MG TAB (TopROL *XL*) PO SCH ×2 (09:28→20:55)
[2017-06-12] MEDS: LISINOPRIL 5 MG TAB PO SCH (09:31)
[2017-06-12] MEDS: SPIRONOLACTONE 25 MG TAB PO SCH (09:32)
[2017-06-12] MEDS: CLOPIDOGREL 75 MG TAB PO SCH (09:32)
[2017-06-12] MEDS: NYSTATIN 100,000 UNITS/GM TOPICAL PWD 15 GM TOP SCH ×2 (09:32→20:54)
[2017-06-12] MEDS: ASPIRIN 81 MG CHEW TABLET PO SCH (09:32)
[2017-06-12] MEDS: FUROSEMIDE 40 MG TAB PO SCH (09:32)
[2017-06-12 14:00] VITALS: BP 132/64
[2017-06-12] MEDS: SIMVASTATIN 40 MG TAB PO SCH (20:55)
[2017-06-12] MEDS: LIDOCAINE 5% (LIDODERM) PATCH TD SCH ×2 (20:55→20:56)
[2017-06-12 22:00] VITALS: BP 110/53
[2017-06-13] MEDS: IPRATROPIUM 0.5MG/ALBUTEROL 2.5MG INH SOL UD 3ML (DUONEB)(J7620) NEB SCH ×4 (07:23→20:21)
--- NOTE | 2017-06-13 08:32 | IPNPDOC ---
Subjective Date Seen The patient was seen on 06/13/17. Subjective Chief Complaint/HPI The patient is a 86-year-old female admitted with a reason for visit of FALL. Events since last encounter Pt c/p L shoulder pain this morning, it is chronic in nature. Not worse than usual. General: Denies: Fatigue Constitutional: Denies: Chills, Fever Pulmonary: Denies: Dyspnea Cardiovascular: Denies: Chest Pain, Palpitations Gastrointestinal: Denies: Nausea, Vomiting Psych: Reports: Mood Normal Objective Physical Examination General Exam: Positive: Alert, No Acute Distress ENT Exam: Positive: Mucous membr. moist/pink Neck Exam: Positive: Supple, Negative: JVD Chest Exam: Positive: Rales (Fine bibasilar rales B), Negative: Rhonchi Heart Exam: Positive: Rate Normal, Regular Rhythm Telemetry: Positive: No significant arrhythmia Abdomen Exam: Positive: Normal bowel sounds, Soft, Negative: Tenderness Extremity Exam: Negative: Edema Psych Exam: Negative: Oriented x 3 (alert and oriented to name, hospital, [place]) Assessment /Plan Problems (1) Acute diastolic congestive heart failure, NYHA class 4 Status: Acute Response to Treatment: Improving Problem Text: 06/13 - Appears stable. 06/03/17: increased furosemide to 60 mg daily which will start today. 06/02/17: lasix 40 IV last night. some improvement today. will increase lasix to 60 daily po 05/30/17: -300 ml since yesterday. monitor I/O. Mag level ordered. electrolytes are stable. 05/29: Poss secondary to recent ID. LVEF 30-35%. Pt on low dose ARNEL and low dose BB per cardiology. Rales on exam today and prev CXR did not show pulmonary edema , so may be more acute after ID. Cont to have wheezing and SOB at rest, likely secondary to pulmonary edema present now. - IV lasix 40 mg once - lasix 20 mg IV daily and spironolactone 25 mg PO daily; target 1L daily loss - check mag after diuresis. (2) NSTEMI (non-ST elevated myocardial infarction) Status: Acute Response to Treatment: Stable, Improving Problem Text: 06/13 - asymptomatic. 05/30/17: cardiology monitoring. monitor I/O and electrolytes with diuresis. 05/29: Currently medical management of N STEMI with beta tony, Arnel, aspirin, Plavix, and statin. Cardiology consulted. Echo possibly consistent with Takotsubo. Currently compensated although patient cont to be wheezy today. Wheezing and rales on exam. - cont med management of NSTEMI with acute CHF 05/28: Currently medical management of N STEMI with beta tony, Arnel, aspirin, Plavix, and statin. Cardiology consulted. Echo possibly consistent with Takotsubo. Currently compensated although patient is somewhat wheezy today. Chest x-ray showed no pulmonary edema. 05/27/17: see cardiology recommendations 05/26 - Seen by cardiology. Trops trending down. Dr Fall questions Takotsubo. Dr Fall discussed cath with the pt who stated she was not interested. Pt is on Lovenox [address] Fall advises staying on the Lovenox for 48-72 hours and advises her to go home on aspirin and plavix when stable for D/C. Pt is on Zocor. She is on Metoprolol 25 mg PO BID. 05/25 - Cardiology consulted. I discussed with Dr Fall. Pt started on Lovenox 130 mg BID and Aspirin. On Zocor. Dr Fall questions Takotsubo. He advises decreasing the Lovenox to 120 mg BID, and advises staying on the Lovenox for 48- 72 hours. He advises adding Plavix 75 mg daily and metoprolol [address] Fall discussed cath with the pt who stated she was not interested. He did bring up DNR to Pt and daughter. He would like the medicine team to continue the DNR conversation with the pt and family. ECHO: 1. Study is of fair technical quality. 2. Normal LV size with segmental wall motion abnormalities as noted above and overall estimated LVEF 30-35%. 3. No hemodynamically significant valvular disease. 4. Unable to estimate central venous pressure but probably normal or mildly elevated pulmonary artery pressure. 5. Grade 1 diastolic dysfunction. COMMENT: SBE prophylaxis is not recommended. Study favors so-called stress-induced cardiomyopathy versus ischemic event. (3) Elevated troponin Status: Acute Problem Specific Plan: Consult Specialist, Monitor Clinically, Repeat Labs Problem Text: Resolving. Plan for rehabilitation after hospitalization. Pt not able to participate at all in PT yet. Refused yesterday. (4) Fall Status: Acute Problem Specific Plan: Monitor Clinically (5) Contusion, hip Status: Acute Problem Specific Plan: Monitor Clinically (6) Knee contusion Status: Acute Problem Specific Plan: Monitor Clinically (7) Gait disturbance Status: Acute Problem Specific Plan: Monitor Clinically (8) Hyperlipidemia Status: Chronic Problem Text: On Zocor. (9) Asthma Status: Chronic Problem Specific Plan: Monitor Clinically Problem Text: PRN Nebs. (10) Morbid obesity with BMI of 40.0-44.9, adult Plan/VTE VTE Prophylaxis Ordered?: Yes Plan Anticipated Discharge: Intermediate (PFS working with family for documentation for placement.) VS, I&O, 24H, [facility] Vital Signs/I&O Vital Signs Date Time Temp Pulse Resp B/P (MAP) Pulse Ox O2 Delivery O2 Flow Rate FiO2 06/12/17 22:00 98.2 65 16 110/53 (72) 92 Room Air 06/11/17 08:54 1.0 I&O- Last 24 Hours up to 6 AM 06/13/17 06:00 Intake Total 1080 ml Output Total 1900 ml Balance -820 ml Laboratory Data Microbiology Microbiology 06/05/17 Urine Culture - Final, Complete Staphylococcus Epidermidis LAY REYES PA-C Jun 13, 2017 08:32
[2017-06-13] MEDS: **NOTE PATIENT COMMENT** MISC XX SCH (09:00)
[2017-06-13] MEDS: FUROSEMIDE 40 MG TAB PO SCH (10:54)
[2017-06-13] MEDS: METOPROLOL SUCC *XL* 25MG TAB (TopROL *XL*) PO SCH ×2 (10:54→21:47)
[2017-06-13] MEDS: LISINOPRIL 5 MG TAB PO SCH (10:55)
[2017-06-13] MEDS: CLOPIDOGREL 75 MG TAB PO SCH (10:55)
[2017-06-13] MEDS: SPIRONOLACTONE 25 MG TAB PO SCH (10:55)
[2017-06-13] MEDS: ASPIRIN 81 MG CHEW TABLET PO SCH (10:55)
[2017-06-13] MEDS: NYSTATIN 100,000 UNITS/GM TOPICAL PWD 15 GM TOP SCH ×2 (10:56→21:00)
[2017-06-13] MEDS: ACETAMINOPHEN TAB 650MG DOSE (2X325MG) PO PRN ×2 (10:57→21:51)
[2017-06-13 14:00] VITALS: BP 112/52
--- NOTE | 2017-06-13 17:00 | DSES ---
DATE OF ADMISSION: 05/24/2017 DATE OF DISCHARGE: ATTENDING PHYSICIAN: HISTORY OF THE PRESENT ILLNESS: This is an 86-year-old female who presented to the emergency room after a fall the evening prior. Per history and physical, the patient had been trying to get out of bed to go to the bathroom, had fallen and hit a stool on the bed, sustaining some hip bruising. Denied loss of consciousness. Workup in the emergency room proved elevated cardiac markers with a troponin of 7.22, total CK of 1913, CK-MB of 33.9. EKG showed sinus rhythm with ventricular rate of 65, septal myocardial infarction. The patient's chest x-ray was nonexistent. However, the patient was admitted and cardiology was consulted. The patient was admitted to family medicine service. HOSPITAL COURSE: Patient's troponin slowly trended down to a low of 0.73. She was evaluated and consulted by Dr. Madan Fall. Options were discussed with the patient regarding cardiac care, and the patient expressed that she did not want to pursue any further heroic measures, she was unwilling to undergo open heart surgery or to be transferred for coronary angiogram. It was deemed the patient would be treated conservatively. The patient was started on Lovenox 120 mg subcutaneously twice per day. She was started on Plavix and aspirin. The patient was monitored via telemetry with no significant arrhythmias. The patient's daughter has expressed some concern with the patient's physical capabilities at home and is considering short-term rehabilitation versus long-term care. The patient has progressively improved and has stabilized medically at this point. IMAGIN. Echocardiogram. The patient has an overall estimated left ventricular ejection fraction (LVEF) of 30-35%, grade 1 diastolic dysfunction. 2. Lumbar spine x-ray, knee x-ray, hip x-ray - all negative for acute fractures. 3. Chest x-ray completed. No pneumonia or cardiopulmonary findings. 4. Ultrasound of the right lower extremity completed due to some swelling. This was negative for deep venous thrombosis (DVT). CONSULTATIONS: Dr. Madan Fall, cardiology. ON PHYSICAL EXAM: Today, vital signs are stable. She is afebrile. Patient's electrolytes are stable. Hemoglobin and hematocrit are stable. Platelets are stable. HEENT: Neck is supple without lymphadenopathy or jugular venous distention (JVD). CARDIOVASCULAR: Heart rate/rhythm are regular. PULMONARY: Lungs are clear throughout. ABDOMEN: Soft and nontender. DISCHARGE DIAGNOSES: 1. Myocardial infarction. 2. Status post fall. 3. Debilitation and weakness. 4. Oxygen-dependent chronic obstructive pulmonary disease (COPD). SECONDARY DIAGNOSES: 1. Venous stasis of lower extremities. 2. Degenerative joint disease. 3. Morbid obesity. PLAN: The patient will be discharged to short-term rehabilitation or long-term care facility, depending on capabilities and preferences of the family. Medication list will be provided at the time of discharge.
[2017-06-13] MEDS: SIMVASTATIN 40 MG TAB PO SCH (21:47)
[2017-06-13] MEDS: LIDOCAINE 5% (LIDODERM) PATCH TD SCH (21:51)
[2017-06-13 22:00] VITALS: BP 132/64
[2017-06-14] MEDS: ACETAMINOPHEN TAB 650MG DOSE (2X325MG) PO PRN ×3 (02:47→20:33)
[2017-06-14] MEDS: IPRATROPIUM 0.5MG/ALBUTEROL 2.5MG INH SOL UD 3ML (DUONEB)(J7620) NEB SCH ×4 (08:33→20:14)
[2017-06-14] MEDS: **NOTE PATIENT COMMENT** MISC XX SCH (09:00)
[2017-06-14] MEDS: NYSTATIN 100,000 UNITS/GM TOPICAL PWD 15 GM TOP SCH ×2 (09:00→21:00)
[2017-06-14] MEDS: FUROSEMIDE 40 MG TAB PO SCH (09:11)
[2017-06-14] MEDS: METOPROLOL SUCC *XL* 25MG TAB (TopROL *XL*) PO SCH ×2 (09:11→20:29)
[2017-06-14] MEDS: SPIRONOLACTONE 25 MG TAB PO SCH (09:11)
[2017-06-14] MEDS: ASPIRIN 81 MG CHEW TABLET PO SCH (09:12)
[2017-06-14] MEDS: CLOPIDOGREL 75 MG TAB PO SCH (09:12)
[2017-06-14] MEDS: LISINOPRIL 5 MG TAB PO SCH (09:12)
[2017-06-14] MEDS: LIDOCAINE 5% (LIDODERM) PATCH TD SCH (20:29)
[2017-06-14] MEDS: SIMVASTATIN 40 MG TAB PO SCH (20:29)
[2017-06-14 22:00] VITALS: BP 121/58
[2017-06-15 06:00] VITALS: BP 101/51
[2017-06-15] MEDS: IPRATROPIUM 0.5MG/ALBUTEROL 2.5MG INH SOL UD 3ML (DUONEB)(J7620) NEB SCH ×4 (07:14→20:00)
[2017-06-15] MEDS: **NOTE PATIENT COMMENT** MISC XX SCH (09:00)
[2017-06-15] MEDS: METOPROLOL SUCC *XL* 25MG TAB (TopROL *XL*) PO SCH ×2 (09:00→21:37)
[2017-06-15] MEDS: ASPIRIN 81 MG CHEW TABLET PO SCH (10:03)
[2017-06-15] MEDS: SPIRONOLACTONE 25 MG TAB PO SCH (10:03)
[2017-06-15] MEDS: CLOPIDOGREL 75 MG TAB PO SCH (10:04)
[2017-06-15] MEDS: FUROSEMIDE 40 MG TAB PO SCH (10:04)
[2017-06-15] MEDS: LISINOPRIL 5 MG TAB PO SCH (10:04)
[2017-06-15] MEDS: NYSTATIN 100,000 UNITS/GM TOPICAL PWD 15 GM TOP SCH ×2 (10:05→21:37)
[2017-06-15] MEDS: ACETAMINOPHEN TAB 650MG DOSE (2X325MG) PO PRN (17:36)
[2017-06-15] MEDS: SIMVASTATIN 40 MG TAB PO SCH (21:36)
[2017-06-15] MEDS: LIDOCAINE 5% (LIDODERM) PATCH TD SCH (21:40)
[2017-06-15 22:00] VITALS: BP 115/56
[2017-06-16 06:00] VITALS: BP 110/50
[2017-06-16] MEDS: IPRATROPIUM 0.5MG/ALBUTEROL 2.5MG INH SOL UD 3ML (DUONEB)(J7620) NEB SCH ×4 (07:06→20:00)
[2017-06-16] MEDS: **NOTE PATIENT COMMENT** MISC XX SCH (09:00)
[2017-06-16] MEDS: CLOPIDOGREL 75 MG TAB PO SCH (10:18)
[2017-06-16] MEDS: ASPIRIN 81 MG CHEW TABLET PO SCH (10:18)
[2017-06-16] MEDS: FUROSEMIDE 40 MG TAB PO SCH (10:18)
[2017-06-16] MEDS: SPIRONOLACTONE 25 MG TAB PO SCH (10:18)
[2017-06-16] MEDS: LISINOPRIL 5 MG TAB PO SCH (10:19)
[2017-06-16] MEDS: METOPROLOL SUCC *XL* 25MG TAB (TopROL *XL*) PO SCH ×3 (10:19→22:26)
[2017-06-16] MEDS: NYSTATIN 100,000 UNITS/GM TOPICAL PWD 15 GM TOP SCH ×2 (10:20→22:27)
[2017-06-16 11:57] LABS: MEAN CORPUSCULAR HEMOGLOBIN 31.9 pg (27.0-33.0); MEAN CORPUSCULAR HGB CONC 33.1 g/dl (32.0-36.5); MEAN CORPUSCULAR VOLUME 96.5 fl (80.0-96.0); RED CELL DISTRIBUTION WIDTH 13.3 % (11.5-14.5); WHITE BLOOD COUNT 5.2 K/mm3 (4.0-10.0)
[2017-06-16] MEDS: ACETAMINOPHEN TAB 650MG DOSE (2X325MG) PO PRN (12:32)
[2017-06-16 12:54] LABS: ALBUMIN 3.1 GM/DL (3.2-5.2); ALBUMIN/GLOBULIN RATIO 0.74 (1.00-1.93); BILIRUBIN,TOTAL 0.3 MG/DL (0.2-1.0); CALCIUM LEVEL 9.8 MG/DL (8.8-10.2); TOTAL PROTEIN 7.3 GM/DL (6.4-8.2)
[2017-06-16 13:03] LABS: POTASSIUM SERUM 6.3 MEQ/L (3.5-5.1)
[2017-06-16 14:00] VITALS: BP 115/53
[2017-06-16] MEDS ORDERED: SOD POLYSTYRENE SULFONATE SUSP 15 GM/60 ML UD PO ONE (14:00)
--- NOTE | 2017-06-16 14:07 | IPN ---
DATE: 06/16/2017 Sheila had laboratories during the day. She was in acute renal failure. She looks dry on examination. She has been on spironolactone, furosemide and BUSTER inhibitor. Furosemide dose was increased on 06/03/2017. PHYSICAL EXAMINATION: 110/50, pulse 55, 96 degrees. GENERAL APPEARANCE: She is a bit confused and lying in bed. She answers questions. No jugular venous distention (JVD). LUNGS: Decreased breath sounds. HEART: Regular rhythm. ABDOMEN: Soft, nontender. EXTREMITIES: No peripheral edema. HEENT: Mucous membranes look dry. LABORATORY DATA: CBC is unremarkable, potassium is 6.3, BUN 76, creatinine is 2.0. IMPRESSION: 1. Acute renal failure, probably from excess diuresis. Holding her diuretics. Holding her BUSTER inhibitor. Spironolactone has been held. Repeat laboratories ordered for the morning. Spoke with the nursing staff. We will push water today to rehydrate her. I do not think that she needs IV hydration at this point. 2. Hyperkalemia. Kayexalate has been ordered. Followup laboratories have been ordered. 3. Diastolic congestive heart failure (CHF). Diuretics on hold. We need to keep an eye on her and make sure that she does not tip back into heart failure.
[2017-06-16] MEDS: ONDANSETRON 4 MG TAB (S0181) PO PRN (20:15)
[2017-06-16] MEDS: SIMVASTATIN 40 MG TAB PO SCH ×2 (21:00→22:26)
[2017-06-16 22:00] VITALS: BP 101/56
[2017-06-16] MEDS: LIDOCAINE 5% (LIDODERM) PATCH TD SCH (22:27)
[2017-06-16 22:30] VITALS: BP 117/69
[2017-06-16] MEDS: DEXTROSE 50% 50 ML SYRINGE IV PRN ×2 (22:41→22:53)
[2017-06-16] MEDS ORDERED: GLUCAGON FOR INJ 1 MG VIAL (J1610) SC PRN (22:45)
[2017-06-16] MEDS ORDERED: GLUCOSE 4 GM CHEW TABLET PO PRN (22:45)
[2017-06-17 06:00] VITALS: BP 106/56
[2017-06-17] MEDS: IPRATROPIUM 0.5MG/ALBUTEROL 2.5MG INH SOL UD 3ML (DUONEB)(J7620) NEB SCH ×4 (07:08→21:53)
[2017-06-17 07:11] LABS: CALCIUM LEVEL 10.1 MG/DL (8.8-10.2); CREATININE FOR GFR 2.65 MG/DL (0.55-1.02); GLOMERULAR FILTRATION RATE 18.1 (>32)
[2017-06-17 07:13] LABS: POTASSIUM SERUM 5.8 MEQ/L (3.5-5.1)
--- NOTE | 2017-06-17 08:35 | IPNPDOC ---
Subjective Date Seen The patient was seen on 06/17/17. Subjective Chief Complaint/HPI The patient is a 86-year-old female admitted with a reason for visit of FALL. Events since last encounter Patient is at baseline mental status per nursing. Had 3 loose BMs yesterday and 1 today but GI panel not sent. Constitutional: Denies: Chills, Fever Pulmonary: Denies: Dyspnea, Cough Cardiovascular: Denies: Chest Pain, Palpitations Gastrointestinal: Reports: Diarrhea, Denies: Nausea, Vomiting, Abdominal Pain, Constipation Objective Physical Examination General Exam: Positive: Alert (Garbles speech at baseline. ), No Acute Distress ENT Exam: Negative: Mucous membr. moist/pink (Bucal mucosa dry) Neck Exam: Positive: Supple, Negative: JVD Chest Exam: Positive: Rales (Fine bibasilar rales B), Negative: Rhonchi Heart Exam: Positive: Rate Normal, Regular Rhythm Telemetry: Positive: No significant arrhythmia Abdomen Exam: Positive: Normal bowel sounds, Soft, Negative: Tenderness Extremity Exam: Negative: Edema Skin Exam: Negative: Nl turgor and temperature (poor skin turgor) Assessment /Plan Problems (1) Acute renal failure Status: Acute Response to Treatment: Worse Problem Text: Renal function worse today. Lasix/Spironolactone and ARNEL held yesterday but got her morning doses yesterday. I will give IVF NS @ 80/hour today and encourage po fluids Give another dose of Kayexalate for hyperkalemia. (2) Diarrhea Status: Acute Problem Text: Had loose stool reported yesterday - GI panel ordered but not collected Given Kayexalate yesterday for hyperkalemia so now expect diarrhea from this. Getting more Kayexalate today Will need to monitor diarrhea over next few days - GI panel still on order (3) Chronic systolic CHF (congestive heart failure) Status: Chronic Problem Text: 06/17 - Echo during this admission showed wall motion abnormalities and EF 30 - 35% Echo findings related to recent AK Was decompensated earlier this admission and started on Lasix, Spironolactone and ARNEL Now dehydrated. Diuretics held - IVF started Watch for improvement in renal function and watch closely for development of decompensated CHF (4) NSTEMI (non-ST elevated myocardial infarction) Status: Acute Response to Treatment: Stable, Improving Problem Text: 06/17 - stable on BB, ASA/Plavix, statin - ARNEL held due to ARF 06/13 - asymptomatic. 05/30/17: cardiology monitoring. monitor I/O and electrolytes with diuresis. 05/29: Currently medical management of N STEMI with beta tony, Arnel, aspirin, Plavix, and statin. Cardiology consulted. Echo possibly consistent with Takotsubo. Currently compensated although patient cont to be wheezy today. Wheezing and rales on exam. - cont med management of NSTEMI with acute CHF 05/28: Currently medical management of N STEMI with beta tony, Arnel, aspirin, Plavix, and statin. Cardiology consulted. Echo possibly consistent with Takotsubo. Currently compensated although patient is somewhat wheezy today. Chest x-ray showed no pulmonary edema. 05/27/17: see cardiology recommendations 05/26 - Seen by cardiology. Trops trending down. Dr Fall questions Takotsubo. Dr Fall discussed cath with the pt who stated she was not interested. Pt is on Lovenox [address] Fall advises staying on the Lovenox for 48-72 hours and advises her to go home on aspirin and plavix when stable for D/C. Pt is on Zocor. She is on Metoprolol 25 mg PO BID. 05/25 - Cardiology consulted. I discussed with Dr Fall. Pt started on Lovenox 130 mg BID and Aspirin. On Zocor. Dr Fall questions Takotsubo. He advises decreasing the Lovenox to 120 mg BID, and advises staying on the Lovenox for 48- 72 hours. He advises adding Plavix 75 mg daily and metoprolol [address] Fall discussed cath with the pt who stated she was not interested. He did bring up DNR to Pt and daughter. He would like the medicine team to continue the DNR conversation with the pt and family. ECHO: 1. Study is of fair technical quality. 2. Normal LV size with segmental wall motion abnormalities as noted above and overall estimated LVEF 30-35%. 3. No hemodynamically significant valvular disease. 4. Unable to estimate central venous pressure but probably normal or mildly elevated pulmonary artery pressure. 5. Grade 1 diastolic dysfunction. COMMENT: SBE prophylaxis is not recommended. Study favors so-called stress-induced cardiomyopathy versus ischemic event. (5) Fall Status: Acute Problem Specific Plan: Monitor Clinically (6) Contusion, hip Status: Acute Problem Specific Plan: Monitor Clinically (7) Knee contusion Status: Acute Problem Specific Plan: Monitor Clinically (8) Gait disturbance Status: Acute Problem Specific Plan: Monitor Clinically (9) Hyperlipidemia Status: Chronic Problem Text: On Zocor. (10) Asthma Status: Chronic Response to Treatment: Stable Problem Specific Plan: Monitor Clinically Problem Text: PRN Nebs. (11) Morbid obesity with BMI of 40.0-44.9, adult Plan/VTE VTE Prophylaxis Ordered?: Yes Plan Anticipated Discharge: [facility] (PFS working with family for documentation for placement.) Disposition SNF VS, I&O, 24H, [facility] Vital Signs/I&O Vital Signs Date Time Temp Pulse Resp B/P (MAP) Pulse Ox O2 Delivery O2 Flow Rate FiO2 06/17/17 06:00 96.9 62 18 106/56 (73) 96 Room Air 06/11/17 08:54 1.0 I&O- Last 24 Hours up to 6 AM 06/17/17 06:00 Intake Total 2040 ml Output Total 1900 ml Balance 140 ml Laboratory Data 24H LABS Laboratory Tests 2 06/16/17 11:37: Anion Gap 7L, Glomerular Filtration Rate 25.0L, Blood Urea Nitrogen 76H, Creatinine 2.00H, Sodium Level 139, Potassium Level 6.3*H, Chloride Level 105, Carbon Dioxide Level 27, Calcium Level 9.8, Aspartate Amino Transf (AST/SGOT) 14L, Alanine Aminotransferase (ALT/SGPT) 17, Alkaline Phosphatase 52, Total Bilirubin 0.3, Total Protein 7.3, Albumin 3.1L, Albumin/Globulin Ratio 0.74L 06/17/17 06:25: Anion Gap 6L, Glomerular Filtration Rate 18.1L, Blood Urea Nitrogen 85H, Creatinine 2.65H, Sodium Level 138, Potassium Level 5.8H, Chloride Level 102, Carbon Dioxide Level 30, Calcium Level 10.1 CBC/BMP Laboratory Tests 06/16/17 11:37 Red Blood Count 4.07, Mean Corpuscular Volume 96.5 H, Mean Corpuscular Hemoglobin 31.9, Mean Corpuscular Hemoglobin Concent 33.1, Red Cell Distribution Width 13.3, Calcium Level 9.8, Aspartate Amino Transf (AST/SGOT) 14 L, Alanine Aminotransferase (ALT/SGPT) 17, Alkaline Phosphatase 52, Total Bilirubin 0.3, Total Protein 7.3, Albumin 3.1 L 06/17/17 06:25 Calcium Level 10.1 TASIA TAMEZ PA-C Jun 17, 2017 08:35
[2017-06-17] MEDS ORDERED: SOD POLYSTYRENE SULFONATE SUSP 15 GM/60 ML UD PO ONE (09:00)
[2017-06-17] MEDS: NS 1,000 ML IV SCH ×2 (09:08→20:56)
[2017-06-17] MEDS: ASPIRIN 81 MG CHEW TABLET PO SCH (09:08)
[2017-06-17] MEDS: CLOPIDOGREL 75 MG TAB PO SCH (09:09)
[2017-06-17] MEDS: NYSTATIN 100,000 UNITS/GM TOPICAL PWD 15 GM TOP SCH ×2 (09:11→22:09)
[2017-06-17] MEDS: **NOTE PATIENT COMMENT** MISC XX SCH (09:11)
[2017-06-17] MEDS: METOPROLOL SUCC *XL* 25MG TAB (TopROL *XL*) PO SCH ×2 (09:14→20:56)
[2017-06-17] MEDS: ACETAMINOPHEN TAB 650MG DOSE (2X325MG) PO PRN ×2 (13:36→20:54)
[2017-06-17] MEDS: SIMVASTATIN 40 MG TAB PO SCH (20:54)
[2017-06-17] MEDS: LIDOCAINE 5% (LIDODERM) PATCH TD SCH (20:54)
[2017-06-18 06:00] VITALS: BP 130/61
[2017-06-18] MEDS: IPRATROPIUM 0.5MG/ALBUTEROL 2.5MG INH SOL UD 3ML (DUONEB)(J7620) NEB SCH ×4 (07:10→20:00)
[2017-06-18 08:50] LABS: CALCIUM LEVEL 8.9 MG/DL (8.8-10.2); CREATININE FOR GFR 2.28 MG/DL (0.55-1.02); GLOMERULAR FILTRATION RATE 21.5 (>32)
[2017-06-18] MEDS: **NOTE PATIENT COMMENT** MISC XX SCH (09:00)
[2017-06-18] MEDS: NYSTATIN 100,000 UNITS/GM TOPICAL PWD 15 GM TOP SCH ×2 (09:01→21:08)
[2017-06-18] MEDS: METOPROLOL SUCC *XL* 25MG TAB (TopROL *XL*) PO SCH ×2 (09:01→21:07)
[2017-06-18] MEDS: ASPIRIN 81 MG CHEW TABLET PO SCH (09:01)
[2017-06-18] MEDS: CLOPIDOGREL 75 MG TAB PO SCH (09:01)
[2017-06-18] MEDS: NS 1,000 ML IV SCH ×2 (09:03→21:08)
[2017-06-18] MEDS: LIDOCAINE 5% (LIDODERM) PATCH TD SCH (21:07)
[2017-06-18] MEDS: SIMVASTATIN 40 MG TAB PO SCH (21:07)
[2017-06-18 22:00] VITALS: BP 141/71
[2017-06-19] MEDS: ACETAMINOPHEN TAB 650MG DOSE (2X325MG) PO PRN (01:38)
[2017-06-19 06:00] VITALS: BP 134/84
[2017-06-19 07:21] LABS: CALCIUM LEVEL 9.9 MG/DL (8.8-10.2); CREATININE FOR GFR 0.94 MG/DL (0.55-1.02); GLOMERULAR FILTRATION RATE 59.8 (>32)
[2017-06-19] MEDS: IPRATROPIUM 0.5MG/ALBUTEROL 2.5MG INH SOL UD 3ML (DUONEB)(J7620) NEB SCH ×4 (08:11→20:00)
[2017-06-19] MEDS: **NOTE PATIENT COMMENT** MISC XX SCH (09:00)
[2017-06-19] MEDS: METOPROLOL SUCC *XL* 25MG TAB (TopROL *XL*) PO SCH ×2 (09:14→21:12)
[2017-06-19] MEDS: ASPIRIN 81 MG CHEW TABLET PO SCH (09:14)
[2017-06-19] MEDS: CLOPIDOGREL 75 MG TAB PO SCH (09:14)
[2017-06-19] MEDS: NS 1,000 ML IV SCH (09:14)
[2017-06-19] MEDS: NYSTATIN 100,000 UNITS/GM TOPICAL PWD 15 GM TOP SCH ×2 (09:15→21:13)
--- NOTE | 2017-06-19 19:02 | IPNPDOC ---
Subjective Date Seen The patient was seen on 06/19/17. Subjective Chief Complaint/HPI The patient is a 86-year-old female admitted with a reason for visit of FALL. Events since last encounter Nursing is concerned because she pulled out her IV accidentally today. They wonder whether she may keep it out, or whether it must be put back in. Apparently she is difficult to get good IV access on. The patient has no specific concerns today. It seems that she is eating and drinking well on her own for the time being. General: Reports: Normal Appetite Pulmonary: Denies: Cough Cardiovascular: Denies: Chest Pain, Palpitations Objective Physical Examination General Exam: Positive: Alert (Garbles speech at baseline. ), No Acute Distress Eye Exam: Positive: Conjunctiva & lids normal, Negative: Sclera icteric ENT Exam: Positive: Mucous membr. moist/pink Neck Exam: Negative: JVD, Lymphadenopathy Chest Exam: Positive: Clear to auscultation, Negative: Rhonchi Heart Exam: Positive: Rate Normal, Regular Rhythm Telemetry: Positive: No significant arrhythmia Abdomen Exam: Positive: Normal bowel sounds, Soft, Negative: Tenderness Extremity Exam: Negative: Edema Skin Exam: Positive: Nl turgor and temperature Psych Exam: Positive: Mood NL Assessment /Plan Problems (1) Acute renal failure Status: Resolved Response to Treatment: Improving Problem Specific Plan: Monitor Clinically Problem Text: Her renal function has essentially normalized over the last couple days. (2) Diarrhea Status: Resolved Problem Text: As predicted she did have more loose stool with Kayexalate, but now that this is out of her system she's having more normal bowel movements. (3) Chronic combined systolic and diastolic heart failure Permanent Comment: 05/24/2017 - Echo showed wall motion abnormalities and EF 30 - 35% with grade 1 diastolic dysfunction Last Edited By: Cj Robledo MD on Jun 22, 2017 22:36 Status: Chronic Problem Specific Plan: Monitor Clinically Problem Text: She appears to be compensated at this time. We'll continue to watch her carefully. (4) NSTEMI (non-ST elevated myocardial infarction) Status: Acute Response to Treatment: Stable, Improving Problem Text: 06/19 No further symptoms, do need to monitor. 06/17 - stable on BB, ASA/Plavix, statin - ARNEL held due to ARF 06/13 - asymptomatic. 05/30/17: cardiology monitoring. monitor I/O and electrolytes with diuresis. 05/29: Currently medical management of N STEMI with beta tony, Arnel, aspirin, Plavix, and statin. Cardiology consulted. Echo possibly consistent with Takotsubo. Currently compensated although patient cont to be wheezy today. Wheezing and rales on exam. - cont med management of NSTEMI with acute CHF 05/28: Currently medical management of N STEMI with beta tony, Arnel, aspirin, Plavix, and statin. Cardiology consulted. Echo possibly consistent with Takotsubo. Currently compensated although patient is somewhat wheezy today. Chest x-ray showed no pulmonary edema. 05/27/17: see cardiology recommendations 05/26 - Seen by cardiology. Trops trending down. Dr Fall questions Takotsubo. Dr Fall discussed cath with the pt who stated she was not interested. Pt is on Lovenox [address] Fall advises staying on the Lovenox for 48-72 hours and advises her to go home on aspirin and plavix when stable for D/C. Pt is on Zocor. She is on Metoprolol 25 mg PO BID. 05/25 - Cardiology consulted. I discussed with Dr Fall. Pt started on Lovenox 130 mg BID and Aspirin. On Zocor. Dr Fall questions Takotsubo. He advises decreasing the Lovenox to 120 mg BID, and advises staying on the Lovenox for 48- 72 hours. He advises adding Plavix 75 mg daily and metoprolol [address] Fall discussed cath with the pt who stated she was not interested. He did bring up DNR to Pt and daughter. He would like the medicine team to continue the DNR conversation with the pt and family. ECHO: 1. Study is of fair technical quality. 2. Normal LV size with segmental wall motion abnormalities as noted above and overall estimated LVEF 30-35%. 3. No hemodynamically significant valvular disease. 4. Unable to estimate central venous pressure but probably normal or mildly elevated pulmonary artery pressure. 5. Grade 1 diastolic dysfunction. COMMENT: SBE prophylaxis is not recommended. Study favors so-called stress-induced cardiomyopathy versus ischemic event. (5) Fall Status: Acute Problem Specific Plan: Monitor Clinically (6) Contusion, hip Status: Acute Problem Specific Plan: Monitor Clinically (7) Knee contusion Status: Acute Problem Specific Plan: Monitor Clinically (8) Gait disturbance Status: Acute Problem Specific Plan: Monitor Clinically (9) Hyperlipidemia Status: Chronic Problem Text: On Zocor. (10) Asthma Status: Chronic Response to Treatment: Stable Problem Specific Plan: Monitor Clinically Problem Text: PRN Nebs. (11) Morbid obesity with BMI of 40.0-44.9, adult Problem Text: This complicates healing her improvement for many for medical problems. Plan/VTE VTE Prophylaxis Ordered?: Yes Plan Anticipated Discharge: Retirement (PFS working with family for documentation for placement.) VS[facility]&O[facility] Vital Signs/I&O Vital Signs Date Time Temp Pulse Resp B/P (MAP) Pulse Ox O2 Delivery O2 Flow Rate FiO2 06/19/17 09:14 68 134/84 06/19/17 09:00 Room Air 06/19/17 06:00 97.2 18 96 I&O- Last 24 Hours up to 6 AM 06/19/17 06:00 Intake Total 1320 ml Output Total 0 ml Balance 1320 ml Laboratory Data 24H LABS Laboratory Tests 2 06/19/17 06:42: Anion Gap 8, Glomerular Filtration Rate 59.8, Blood Urea Nitrogen 56H, Creatinine 0.94#, Sodium Level 147H, Potassium Level 5.0, Chloride Level 116H, Carbon Dioxide Level 23, Calcium Level 9.9 CBC/BMP Laboratory Tests 06/19/17 06:42 Calcium Level 9.9 Microbiology Microbiology 06/17/17 Gastrointestinal Tract Panel (PCR) - Final, Complete Cj Robledo MD Jun 19, 2017 19:02
[2017-06-19] MEDS: SIMVASTATIN 40 MG TAB PO SCH (21:12)
[2017-06-19] MEDS: LIDOCAINE 5% (LIDODERM) PATCH TD SCH (21:13)
[2017-06-19 22:00] VITALS: BP 169/73
[2017-06-20 06:00] VITALS: BP 129/70
[2017-06-20] MEDS: IPRATROPIUM 0.5MG/ALBUTEROL 2.5MG INH SOL UD 3ML (DUONEB)(J7620) NEB SCH ×4 (07:13→18:23)
[2017-06-20 07:22] LABS: ANION GAP 8 MEQ/L (8-16); BLOOD UREA NITROGEN 27 MG/DL (7-18); CALCIUM LEVEL 9.7 MG/DL (8.8-10.2); CARBON DIOXIDE LEVEL 25 MEQ/L (21-32); CHLORIDE LEVEL 112 MEQ/L (98-107); CREATININE FOR GFR 0.72 MG/DL (0.55-1.02); GLOMERULAR FILTRATION RATE > 60.0 (>32); GLUCOSE, FASTING 87 MG/DL (83-110); SODIUM LEVEL 145 MEQ/L (136-145)
[2017-06-20] MEDS: ASPIRIN 81 MG CHEW TABLET PO SCH (09:09)
[2017-06-20] MEDS: METOPROLOL SUCC *XL* 25MG TAB (TopROL *XL*) PO SCH ×2 (09:09→20:45)
[2017-06-20] MEDS: CLOPIDOGREL 75 MG TAB PO SCH (09:09)
[2017-06-20] MEDS: NYSTATIN 100,000 UNITS/GM TOPICAL PWD 15 GM TOP SCH ×2 (09:09→20:49)
[2017-06-20] MEDS: **NOTE PATIENT COMMENT** MISC XX SCH (09:10)
[2017-06-20] MEDS: ACETAMINOPHEN TAB 650MG DOSE (2X325MG) PO PRN ×2 (09:11→20:47)
--- NOTE | 2017-06-20 11:01 | IPNPDOC ---
Subjective Date Seen The patient was seen on 06/20/17. Subjective Chief Complaint/HPI The patient is a 86-year-old female admitted with a reason for visit of FALL. General: Reports: Normal Appetite, Denies: Chills Pulmonary: Denies: Dyspnea, Cough Cardiovascular: Denies: Chest Pain, Palpitations, Orthopnea Gastrointestinal: Denies: Nausea, Vomiting, Abdominal Pain Genitourinary: Denies: Dysuria Hematologic: Denies: Bruising, Petecchia Objective Physical Examination General Exam: Positive: Alert (Garbles speech at baseline. ), No Acute Distress ENT Exam: Negative: Mucous membr. moist/pink (Bucal mucosa dry) Neck Exam: Positive: Supple, Negative: JVD Chest Exam: Positive: Diminished, Negative: Rhonchi Heart Exam: Positive: Rate Normal, Regular Rhythm Telemetry: Positive: No significant arrhythmia Abdomen Exam: Positive: Normal bowel sounds, Soft, Negative: Tenderness Extremity Exam: Negative: Edema Skin Exam: Negative: Nl turgor and temperature (poor skin turgor) Psych Exam: Positive: Other (somewhat confused, unrealistic expectation.) Assessment /Plan Problems (1) Acute renal failure Status: Acute Response to Treatment: Improving Problem Text: Creatinine normal last 2 days. IV site out, will stop IV fluids. Question remains as to whether she can sustain herself with po intake. With rapid correction of volume, some risk of exacerbation of CHF (2) Diarrhea Status: Acute Problem Text: abdomen soft, non-tender, no BM last 2 days (3) Chronic systolic CHF (congestive heart failure) Status: Chronic Problem Text: 06/17 - Echo during this admission showed wall motion abnormalities and EF 30 - 35% Echo findings related to recent [place] Was decompensated earlier this admission and started on Lasix, Spironolactone and ARNEL Now dehydrated. Diuretics held - IVF started Watch for improvement in renal function and watch closely for development of decompensated CHF (4) NSTEMI (non-ST elevated myocardial infarction) Status: Acute Response to Treatment: Stable, Improving Problem Text: 06/17 - stable on BB, ASA/Plavix, statin - ARNEL held due to ARF 06/13 - asymptomatic. 05/30/17: cardiology monitoring. monitor I/O and electrolytes with diuresis. 05/29: Currently medical management of N STEMI with beta tony, Arnel, aspirin, Plavix, and statin. Cardiology consulted. Echo possibly consistent with Takotsubo. Currently compensated although patient cont to be wheezy today. Wheezing and rales on exam. - cont med management of NSTEMI with acute CHF 05/28: Currently medical management of N STEMI with beta tony, Arnel, aspirin, Plavix, and statin. Cardiology consulted. Echo possibly consistent with Takotsubo. Currently compensated although patient is somewhat wheezy today. Chest x-ray showed no pulmonary edema. 05/27/17: see cardiology recommendations 05/26 - Seen by cardiology. Trops trending down. Dr Fall questions Takotsubo. Dr Fall discussed cath with the pt who stated she was not interested. Pt is on Lovenox [address] Fall advises staying on the Lovenox for 48-72 hours and advises her to go home on aspirin and plavix when stable for D/C. Pt is on Zocor. She is on Metoprolol 25 mg PO BID. 05/25 - Cardiology consulted. I discussed with Dr Fall. Pt started on Lovenox 130 mg BID and Aspirin. On Zocor. Dr Fall questions Takotsubo. He advises decreasing the Lovenox to 120 mg BID, and advises staying on the Lovenox for 48- 72 hours. He advises adding Plavix 75 mg daily and metoprolol [address] Fall discussed cath with the pt who stated she was not interested. He did bring up DNR to Pt and daughter. He would like the medicine team to continue the DNR conversation with the pt and family. ECHO: 1. Study is of fair technical quality. 2. Normal LV size with segmental wall motion abnormalities as noted above and overall estimated LVEF 30-35%. 3. No hemodynamically significant valvular disease. 4. Unable to estimate central venous pressure but probably normal or mildly elevated pulmonary artery pressure. 5. Grade 1 diastolic dysfunction. COMMENT: SBE prophylaxis is not recommended. Study favors so-called stress-induced cardiomyopathy versus ischemic event. (5) Fall Status: Acute Problem Specific Plan: Monitor Clinically (6) Contusion, hip Status: Acute Problem Specific Plan: Monitor Clinically (7) Knee contusion Status: Acute Problem Specific Plan: Monitor Clinically (8) Gait disturbance Status: Acute Problem Specific Plan: Monitor Clinically (9) Hyperlipidemia Status: Chronic Problem Text: On Zocor. (10) Asthma Status: Chronic Response to Treatment: Stable Problem Specific Plan: Monitor Clinically Problem Text: PRN Nebs. (11) Morbid obesity with BMI of 40.0-44.9, adult Plan/VTE VTE Prophylaxis Ordered?: Yes Plan Anticipated Discharge: Intermediate (PFS working with family for documentation for placement.) VS, I&O, 24H, Fishbone Vital Signs/I&O Vital Signs Date Time Temp Pulse Resp B/P (MAP) Pulse Ox O2 Delivery O2 Flow Rate FiO2 06/20/17 09:09 60 129/70 06/20/17 06:00 97.8 18 94 Room Air I&O- Last 24 Hours up to 6 AM 06/20/17 06:00 Intake Total 140 ml Output Total 550 ml Balance -410 ml Laboratory Data 24H LABS Laboratory Tests 2 06/20/17 06:27: Anion Gap 8, Glomerular Filtration Rate > 60.0, Blood Urea Nitrogen 27#H, Creatinine 0.72, Sodium Level 145, Potassium Level 5.0, Chloride Level 112H, Carbon Dioxide Level 25, Calcium Level 9.7 CBC/BMP Laboratory Tests 06/20/17 06:27 Calcium Level 9.7 Microbiology Microbiology 06/17/17 Gastrointestinal Tract Panel (PCR) - Final, Complete Don Richards MD Jun 20, 2017 11:01
[2017-06-20 14:00] VITALS: BP 129/60
[2017-06-20] MEDS: SIMVASTATIN 40 MG TAB PO SCH (20:45)
[2017-06-20] MEDS: LIDOCAINE 5% (LIDODERM) PATCH TD SCH (20:46)
[2017-06-20 22:00] VITALS: BP 130/60
[2017-06-21] MEDS: ACETAMINOPHEN TAB 650MG DOSE (2X325MG) PO PRN ×2 (03:41→22:32)
[2017-06-21 06:00] VITALS: BP 131/66
[2017-06-21 07:02] LABS: ANION GAP 4 MEQ/L (8-16); BLOOD UREA NITROGEN 20 MG/DL (7-18); CALCIUM LEVEL 9.8 MG/DL (8.8-10.2); CARBON DIOXIDE LEVEL 29 MEQ/L (21-32); CHLORIDE LEVEL 108 MEQ/L (98-107); CREATININE FOR GFR 0.79 MG/DL (0.55-1.02); GLOMERULAR FILTRATION RATE > 60.0 (>32); GLUCOSE, FASTING 94 MG/DL (83-110); POTASSIUM SERUM 4.5 MEQ/L (3.5-5.1); SODIUM LEVEL 141 MEQ/L (136-145)
[2017-06-21] MEDS: IPRATROPIUM 0.5MG/ALBUTEROL 2.5MG INH SOL UD 3ML (DUONEB)(J7620) NEB SCH ×4 (07:12→19:16)
[2017-06-21] MEDS: CLOPIDOGREL 75 MG TAB PO SCH (08:53)
[2017-06-21] MEDS: NYSTATIN 100,000 UNITS/GM TOPICAL PWD 15 GM TOP SCH ×2 (08:53→21:00)
[2017-06-21] MEDS: METOPROLOL SUCC *XL* 25MG TAB (TopROL *XL*) PO SCH ×2 (08:53→22:31)
[2017-06-21] MEDS: ASPIRIN 81 MG CHEW TABLET PO SCH (08:53)
[2017-06-21] MEDS: ONDANSETRON 4 MG TAB (S0181) PO PRN (08:53)
[2017-06-21] MEDS: **NOTE PATIENT COMMENT** MISC XX SCH (08:54)
[2017-06-21 14:00] VITALS: BP 142/68
[2017-06-21 22:00] VITALS: BP 128/73
[2017-06-21] MEDS: SIMVASTATIN 40 MG TAB PO SCH (22:31)
[2017-06-21] MEDS: LIDOCAINE 5% (LIDODERM) PATCH TD SCH (22:33)
[2017-06-22 06:00] VITALS: BP 134/84
[2017-06-22] MEDS: IPRATROPIUM 0.5MG/ALBUTEROL 2.5MG INH SOL UD 3ML (DUONEB)(J7620) NEB SCH ×4 (07:12→19:17)
[2017-06-22] MEDS: ACETAMINOPHEN TAB 650MG DOSE (2X325MG) PO PRN ×2 (08:50→20:40)
[2017-06-22] MEDS: CLOPIDOGREL 75 MG TAB PO SCH (08:50)
[2017-06-22] MEDS: ASPIRIN 81 MG CHEW TABLET PO SCH (08:50)
[2017-06-22] MEDS: METOPROLOL SUCC *XL* 25MG TAB (TopROL *XL*) PO SCH ×2 (08:50→20:39)
[2017-06-22] MEDS: NYSTATIN 100,000 UNITS/GM TOPICAL PWD 15 GM TOP SCH ×2 (08:51→20:41)
[2017-06-22] MEDS: **NOTE PATIENT COMMENT** MISC XX SCH (08:51)
[2017-06-22 14:00] VITALS: BP 134/58
[2017-06-22] MEDS: SIMVASTATIN 40 MG TAB PO SCH (20:38)
[2017-06-22] MEDS: LIDOCAINE 5% (LIDODERM) PATCH TD SCH (20:39)
[2017-06-22 22:00] VITALS: BP 116/67
[2017-06-23 06:00] VITALS: BP 123/65
--- NOTE | 2017-06-23 07:08 | EEG ---
DATE OF PROCEDURE: 06/21/2017 REFERRING PHYSICIAN: Dr. Ty Warren. DIAGNOSIS: Altered mental status. EEG NUMBER: [id number] HISTORY: The patient is a 86-year-old woman who had episodes of unresponsiveness. The patient is nonambulatory for 2 years and has garbled speech. This EEG was done to rule out epileptic potential and assess degree of encephalopathy. She is currently on aspirin, Plavix, simvastatin, metoprolol, etc.. TECHNICAL DESCRIPTION: This digital EEG was recorded by 21 scalp, ear and two EKG electrodes and was reviewed in bipolar and referential montages following reformatting in 10-20 international electrode placement system. INTERPRETATION: The patient was noted to be in awake and drowsy states during this EEG. Resting awake background rhythm consisted of 3 - 4 Hertz delta activity measuring 15 - 30 microvolts in amplitude. Stage I and II sleep were reviewed and were symmetric bilaterally. Hyperventilation could not be performed. Photic stimulation remained unremarkable. EKG revealed normal sinus rhythm. No focal, lateralizing or epileptiform abnormalities were seen. CONCLUSION: This EEG in awake, stage I and II sleep is abnormal due to presence of generalized slowing and disorganization of background consistent with diffuse nonspecific cerebral dysfunction such as seen in encephalopathy due to multiple potential causes including toxic, metabolic, medication related, infectious or multifocal structural abnormalities of brain. No epileptiform abnormalities were seen. Clinical correlation is recommended.
[2017-06-23 07:23] LABS: ANION GAP 6 MEQ/L (8-16); BLOOD UREA NITROGEN 16 MG/DL (7-18); CALCIUM LEVEL 9.7 MG/DL (8.8-10.2); CARBON DIOXIDE LEVEL 27 MEQ/L (21-32); CHLORIDE LEVEL 106 MEQ/L (98-107); CREATININE FOR GFR 0.63 MG/DL (0.55-1.02); GLOMERULAR FILTRATION RATE > 60.0 (>32); GLUCOSE, FASTING 92 MG/DL (83-110); POTASSIUM SERUM 4.1 MEQ/L (3.5-5.1); SODIUM LEVEL 139 MEQ/L (136-145)
[2017-06-23] MEDS: IPRATROPIUM 0.5MG/ALBUTEROL 2.5MG INH SOL UD 3ML (DUONEB)(J7620) NEB SCH ×4 (07:41→19:48)
[2017-06-23] MEDS: ASPIRIN 81 MG CHEW TABLET PO SCH (08:56)
[2017-06-23] MEDS: CLOPIDOGREL 75 MG TAB PO SCH (08:56)
[2017-06-23] MEDS: NYSTATIN 100,000 UNITS/GM TOPICAL PWD 15 GM TOP SCH ×2 (08:57→20:12)
[2017-06-23] MEDS: **NOTE PATIENT COMMENT** MISC XX SCH (08:57)
[2017-06-23] MEDS: METOPROLOL SUCC *XL* 25MG TAB (TopROL *XL*) PO SCH ×2 (08:57→20:12)
[2017-06-23] MEDS ORDERED: FLEET ENEMA PR ONE (12:30)
[2017-06-23] MEDS ORDERED: MOM 30ML SUSPENSION UDC PO ONE (12:30)
[2017-06-23] MEDS: SIMVASTATIN 40 MG TAB PO SCH (20:12)
[2017-06-23] MEDS: LIDOCAINE 5% (LIDODERM) PATCH TD SCH (20:13)
[2017-06-23 22:00] VITALS: BP 149/67
[2017-06-24] MEDS: ACETAMINOPHEN TAB 650MG DOSE (2X325MG) PO PRN (03:47)
[2017-06-24 06:00] VITALS: BP 138/66
[2017-06-24] MEDS: IPRATROPIUM 0.5MG/ALBUTEROL 2.5MG INH SOL UD 3ML (DUONEB)(J7620) NEB SCH (07:27)
[2017-06-24] MEDS ORDERED: NITR4TASL SL (08:03)
[2017-06-24] MEDS ORDERED: SIMV40TA2 PO (08:03)
[2017-06-24] MEDS ORDERED: ASPI81TA PO (08:03)
[2017-06-24] MEDS ORDERED: NYST10PW TOP (08:03)
[2017-06-24] MEDS ORDERED: CLOP75TA2 PO (08:03)
[2017-06-24] MEDS ORDERED: METO1TAB32 PO (08:03)
[2017-06-24] MEDS ORDERED: LIDO5TD TD (08:03)
[2017-06-24] MEDS ORDERED: MAPA325T3 PO (08:03)
[2017-06-24] MEDS ORDERED: **Note Patient Comment XX (08:03)
[2017-06-24] MEDS ORDERED: IPRASOL4 NEB (08:03)
[2017-06-24] MEDS ORDERED: MOM 30ML SUSPENSION UDC PO ONE (08:30)
[2017-06-24] MEDS: NYSTATIN 100,000 UNITS/GM TOPICAL PWD 15 GM TOP SCH (08:50)
[2017-06-24] MEDS: CLOPIDOGREL 75 MG TAB PO SCH (08:50)
[2017-06-24 08:51] VITALS: BP 138/66
[2017-06-24] MEDS: METOPROLOL SUCC *XL* 25MG TAB (TopROL *XL*) PO SCH (08:51)
[2017-06-24] MEDS: **NOTE PATIENT COMMENT** MISC XX SCH (08:51)
[2017-06-24] MEDS: ASPIRIN 81 MG CHEW TABLET PO SCH (08:51)
--- NOTE | 2017-06-24 12:26 | DSES ---
DATE OF ADMISSION: 05/24/2017 DATE OF DISCHARGE: 06/24/2017 ADDENDUM TO DISCHARGE SUMMARY DICTATED ON 05/31/2017 The patient was fairly stable until 06/17/2017 when she had developed some diarrhea the day before with some loose stool. Blood work was tested which revealed that she had developed also acute renal failure. At that time, her Lasix, spironolactone and BUSTER inhibitor were held and IV fluids were given. Her renal function returned to normal and has remained normal throughout the rest of the hospitalization. On the day prior to discharge, her BUN is 16 and creatinine 0.63. Also on the date of discharge, she does not appear fluid overloaded. Her oxygen saturations are 92% on room air. She does not appear labored with her breathing. Her lungs sound clear and she has no peripheral edema. She will need to be monitored and possibly depending on her fluid intake could need diuretics in the future, especially considering her recent myocardial infarction and ejection fraction of 30-35% per recent echo. However, at this time, she will be transferred to the alf without any diuretics or BUSTER inhibitors. In regards to her diarrhea, it was felt to be related to having been given Kayexalate. Her GI panel was negative and she has had no recurrence of this. Otherwise, she has been medically stable. Heart rate remains controlled on metoprolol. Diet on discharge is no added salt. Activity is per physical therapy. Her medications include Tylenol 650 mg every 4 hours as needed for mild pain, albuterol/ipratropium nebulizers four times a day, aspirin 81 mg daily, Plavix 75 mg daily, lidocaine patches two patches at bedtime, metoprolol 25 mg twice a day, nitroglycerin sublingual as needed, Nystatin powder topically twice a day, and simvastatin 40 mg daily. DISCHARGE DIAGNOSES (In addition to those dictated at the time of her SNF summary include): 1. Acute renal failure, resolved. 2. Diarrhea, resolved. 3. Systolic congestive heart failure with ejection fraction of 30-35%. 4. Gait disturbance. 5. Asthma.
== END 2017-06-24 11:25 | DRG 280 ==
LOC: M ED 13:56 → EDBD 13:56 → M ED INP 21:40 → M PCU 05-25 02:20 → M MSPAV 05-29 17:05 → M MS5PR 06-02 20:04
PROVIDERS: ADMIT General Practice; ATTEND Family Medicine
DX: I21.4 Non-ST elevation (NSTEMI) myocardial infarction (principal); I50.33 Acute on chronic diastolic (congestive) heart failure; I51.81 Takotsubo syndrome; Z68.41 Body mass index [BMI] 40.0-44.9, adult; N17.9 Acute kidney failure, unspecified; E66.01 Morbid (severe) obesity due to excess calories; R26.81 Unsteadiness on feet; S70.00XA Contusion of unspecified hip, initial encounter; R73.03 Prediabetes; E78.5 Hyperlipidemia, unspecified; I87.2 Venous insufficiency (chronic) (peripheral); M19.012 Primary osteoarthritis, left shoulder; J44.9 Chronic obstructive pulmonary disease, unspecified; Z90.710 Acquired absence of both cervix and uterus; Z96.653 Presence of artificial knee joint, bilateral; Z90.49 Acquired absence of other specified parts of digestive tract; W01.190A Fall on same level from slipping, tripping and stumbling with subsequent striking against furniture, initial encounter; Y93.01 Activity, walking, marching and hiking; Y92.013 Bedroom of single-family (private) house as the place of occurrence of the external cause; Y99.9 Unspecified external cause status; Z99.81 Dependence on supplemental oxygen; Z88.0 Allergy status to penicillin; Z79.899 Other long term (current) drug therapy; Z82.49 Family history of ischemic heart disease and other diseases of the circulatory system; Z80.7 Family history of other malignant neoplasms of lymphoid, hematopoietic and related tissues

== ENCOUNTER → 2017-06-30 | Outpatient (REF) ==
[~2017-06-30] MED LIST: **Note Patient Comment XX; ALBU17IN INH; ASPI81TA PO; CLOP75TA2 PO; GABA-279 PO; IPRASOL4 NEB; LIDO5TD TD; MAPA325T3 PO; METO1TAB32 PO; NITR4TASL SL; NYST10PW TOP; SIMV40TA2 PO
[2017-06-30 09:52] LABS: MEAN CORPUSCULAR HEMOGLOBIN 32.2 pg (27.0-33.0); MEAN CORPUSCULAR HGB CONC 33.3 g/dl (32.0-36.5); MEAN CORPUSCULAR VOLUME 96.8 fl (80.0-96.0); RED CELL DISTRIBUTION WIDTH 13.2 % (11.5-14.5)
[2017-06-30 10:17] LABS: ALBUMIN/GLOBULIN RATIO 0.75 (1.00-1.93); ALKALINE PHOSPHATASE 55 U/L (45-117); ALT/SGPT 16 U/L (12-78); ANION GAP 8 MEQ/L (8-16); AST/SGOT 20 U/L (15-37); BILIRUBIN,TOTAL 0.4 MG/DL (0.2-1.0); BLOOD UREA NITROGEN 17 MG/DL (7-18); CALCIUM LEVEL 9.5 MG/DL (8.8-10.2); CARBON DIOXIDE LEVEL 30 MEQ/L (21-32); CHLORIDE LEVEL 105 MEQ/L (98-107); CHOLESTEROL LEVEL 134 MG/DL (<200); CREATININE FOR GFR 0.65 MG/DL (0.55-1.02); GLOMERULAR FILTRATION RATE > 60.0 (>32); GLUCOSE, FASTING 105 MG/DL (83-110); POTASSIUM SERUM 4.7 MEQ/L (3.5-5.1); SODIUM LEVEL 143 MEQ/L (136-145); TRIGLYCERIDES LEVEL 113 MG/DL (<150)
== END ==
LOC: SKLAB4 09:33
PROVIDERS: ATTEND Family Medicine
DX: I25.10 Atherosclerotic heart disease of native coronary artery without angina pectoris (principal); J44.9 Chronic obstructive pulmonary disease, unspecified; I10 Essential (primary) hypertension

== ENCOUNTER → 2017-07-23 | Outpatient (REF) | LOC: SKLAB4 08:24 | PROVIDERS: ATTEND Family Medicine | DX: R41.82 Altered mental status, unspecified (principal); Z53.9 Procedure and treatment not carried out, unspecified reason ==

== ENCOUNTER → 2017-07-23 | Outpatient (REF) | payer MEDICARE, MEDICAID ==
[2017-07-23 07:02] LABS: MEAN CORPUSCULAR HEMOGLOBIN 31.3 pg (27.0-33.0); MEAN CORPUSCULAR HGB CONC 32.6 g/dl (32.0-36.5); MEAN CORPUSCULAR VOLUME 96.1 fl (80.0-96.0); WHITE BLOOD COUNT 4.9 10^3/uL (4.0-10.0)
[2017-07-23 07:23] LABS: ANION GAP 6 MEQ/L (8-16); BLOOD UREA NITROGEN 14 MG/DL (7-18); CALCIUM LEVEL 9.5 MG/DL (8.8-10.2); CARBON DIOXIDE LEVEL 30 MEQ/L (21-32); CHLORIDE LEVEL 103 MEQ/L (98-107); CREATININE FOR GFR 0.52 MG/DL (0.55-1.02); GLOMERULAR FILTRATION RATE > 60.0 (>32); GLUCOSE, FASTING 105 MG/DL (83-110); POTASSIUM SERUM 3.9 MEQ/L (3.5-5.1); SODIUM LEVEL 139 MEQ/L (136-145)
== END ==
LOC: SKLAB4 02:32
PROVIDERS: ATTEND Family Medicine
DX: R41.82 Altered mental status, unspecified (principal); R45.89 Other symptoms and signs involving emotional state

== ENCOUNTER → 2017-10-03 | Outpatient (REF) | payer MEDICARE, MEDICAID ==
[2017-10-03 08:58] LABS: MEAN CORPUSCULAR HEMOGLOBIN 31.9 pg (27.0-33.0); MEAN CORPUSCULAR HGB CONC 32.2 g/dl (32.0-36.5); MEAN CORPUSCULAR VOLUME 99.3 fl (80.0-96.0); PLATELET COUNT, AUTOMATED 171 10^3/uL (150-450); RED CELL DISTRIBUTION WIDTH 13.7 % (11.5-14.5); WHITE BLOOD COUNT 5.2 10^3/uL (4.0-10.0)
== END ==
LOC: SKLAB4 09:45
PROVIDERS: ATTEND Family Medicine
DX: D64.9 Anemia, unspecified (principal)

== ENCOUNTER → 2018-01-02 | Outpatient (REF) | payer MEDICARE, MEDICAID ==
[2018-01-02 08:27] LABS: HEMATOCRIT 40.7 % (36.0-47.0); HEMOGLOBIN 13.3 g/dl (12.0-16.0); MEAN CORPUSCULAR HEMOGLOBIN 32.8 pg (27.0-33.0); MEAN CORPUSCULAR HGB CONC 32.7 g/dl (32.0-36.5); MEAN CORPUSCULAR VOLUME 100.5 fl (80.0-96.0); PLATELET COUNT, AUTOMATED 153 10^3/uL (150-450); RED BLOOD COUNT 4.05 10^6/uL (4.00-5.40); RED CELL DISTRIBUTION WIDTH 12.8 % (11.5-14.5); WHITE BLOOD COUNT 3.5 10^3/uL (4.0-10.0)
[2018-01-02 08:54] LABS: ALBUMIN 3.2 GM/DL (3.2-5.2); ALBUMIN/GLOBULIN RATIO 0.91 (1.00-1.93); ALKALINE PHOSPHATASE 63 U/L (45-117); ALT/SGPT 18 U/L (12-78); ANION GAP 6 MEQ/L (8-16); AST/SGOT 13 U/L (7-37); BILIRUBIN,TOTAL 0.3 MG/DL (0.2-1.0); BLOOD UREA NITROGEN 26 MG/DL (7-18); CALCIUM LEVEL 9.8 MG/DL (8.8-10.2); CARBON DIOXIDE LEVEL 33 MEQ/L (21-32); CHLORIDE LEVEL 106 MEQ/L (98-107); CREATININE FOR GFR 0.61 MG/DL (0.55-1.30); GLOMERULAR FILTRATION RATE > 60.0 (>32); GLUCOSE, FASTING 89 MG/DL (70-100); POTASSIUM SERUM 4.6 MEQ/L (3.5-5.1); SODIUM LEVEL 145 MEQ/L (136-145); TOTAL PROTEIN 6.7 GM/DL (6.4-8.2)
== END ==
LOC: SKLAB4 09:30
DX: R41.82 Altered mental status, unspecified (principal); E11.9 Type 2 diabetes mellitus without complications; J44.9 Chronic obstructive pulmonary disease, unspecified; J45.909 Unspecified asthma, uncomplicated; N18.9 Chronic kidney disease, unspecified
CPT/HCPCS: 80053

== ENCOUNTER → 2018-03-22 | Outpatient (REF) | payer MEDICARE, MEDICAID ==
[2018-03-22 11:59] LABS: C REACTIVE PROTEIN QUANTITATIV < 0.30 MG/DL (0.00-0.30)
[2018-03-22 12:04] LABS: ERYTHROCYTE SEDIMENTATION RATE 13 mm/hr (0-42)
== END ==
LOC: SKLAB4 10:50
DX: H57.12 Ocular pain, left eye (principal)
CPT/HCPCS: 86140

== ENCOUNTER → 2018-04-03 | Outpatient (REF) | payer MEDICARE, MEDICAID ==
[2018-04-03 09:25] LABS: HEMOGLOBIN 14.2 g/dl (12.0-15.5); MEAN CORPUSCULAR HEMOGLOBIN 33.4 pg (27.0-33.0); MEAN CORPUSCULAR HGB CONC 33.8 g/dl (32.0-36.5); MEAN CORPUSCULAR VOLUME 98.8 fl (80.0-96.0); PLATELET COUNT, AUTOMATED 152 10^3/uL (150-450); RED BLOOD COUNT 4.25 10^6/uL (4.00-5.40); RED CELL DISTRIBUTION WIDTH 12.6 % (11.5-14.5); WHITE BLOOD COUNT 4.2 10^3/uL (4.0-10.0)
== END ==
LOC: SKLAB4 09:47
DX: D64.9 Anemia, unspecified (principal)
CPT/HCPCS: 36415